=== PATIENT | female | born 1980 | race Caucasian/White ===

== ENCOUNTER 2016-11-23 03:11 | Emergency (ER) | payer OTHER, MEDICAID ==
[~2016-11-23] VITALS: Ht 170.2 cm; Wt 70.3 kg
[2016-11-23 03:16] VITALS: BP_SYST 142
[2016-11-23] MEDS ORDERED: MORPHINE 4 MG/ML INJ. SYRINGE IVP ONE ×2 (03:45→05:15)
[2016-11-23] MEDS ORDERED: ONDANSETRON HCL 4 MG/2 ML VIAL IVP ONE (03:45)
[2016-11-23 03:59] LABS: BASOPHILS % (AUTO) 0.3 % (0.0-2.0); EOSINOPHILS # (AUTO) 0.2 K/uL (0.0-0.4); EOSINOPHILS % (AUTO) 3.6 % (0.0-4.0); HEMATOCRIT 37.3 % (36-48); HEMOGLOBIN 13.1 g/dL (12.0-16.0); LYMPHOCYTES # (AUTO) 3.4 K/uL (1.0-5.5); LYMPHOCYTES % (AUTO) 50.9 % (20.5-51.5); MEAN CORPUSCULAR HEMOGLOBIN 33 pg (27-31); MEAN CORPUSCULAR HGB CONC 35 % (32-36); MEAN CORPUSCULAR VOLUME 95 fL (79.0-98.0); MONOCYTES # (AUTO) 0.5 K/uL (0.0-1.0); MONOCYTES % (AUTO) 8.4 % (1.7-9.3); NEUTROPHILS # (AUTO) 2.3 K/uL (1.8-7.7); NEUTROPHILS % (AUTO) 36.8 % (40.0-70.0); PLATELET COUNT (AUTO) 311 K/uL (130-430); RED BLOOD CELL COUNT(AUTO) 3.95 MIL/uL (4.2-6.2); RED CELL DISTRIBUTION WIDTH 11.7 % (9.0-15.0); WHITE BLOOD COUNT (AUTO) 6.4 K/uL (4.8-10.8)
[2016-11-23 04:12] LABS: CALCIUM 8.2 mg/dL (8.4-11.0); CHLORIDE 107 mmol/L (98-107); CREATININE 0.95 mg/dL (0.55-1.30); GLUCOSE 106 mg/dL (70-99); POTASSIUM 3.9 mmol/L (3.5-5.1); SODIUM SERUM 135 mmol/L (136-145); UREA NITROGEN, BLOOD 13 mg/dL (8-21)
[2016-11-23 04:16] LABS: ANION GAP < 3 (5-15); GFR AFRICAN AMERICAN 87 mL/min (>90)
[2016-11-23 04:22] LABS: ALANINE AMINOTRANSFERASE 33 U/L (12-78); ALBUMIN 3.5 g/dL (3.4-4.8); ASPARTATE AMINOTRANSFERASE 19 U/L (10-37); HCG,QUANTITATIVE 0 mIU/ML (0-6); TOTAL BILIRUBIN 0.1 mg/dL (0.0-1.0); TOTAL PROTEIN, SERUM 6.4 g/dL (6.4-8.3)
[2016-11-23 05:53] VITALS: BP_SYST 122
== END 2016-11-23 05:53 | disposition home or self-care (01) ==
LOC: SED 03:11
DX: D25.9 Leiomyoma of uterus, unspecified (principal); N93.8 Other specified abnormal uterine and vaginal bleeding; F41.9 Anxiety disorder, unspecified; F42.9 Obsessive-compulsive disorder, unspecified; Z88.0 Allergy status to penicillin
CPT/HCPCS: 36415; 76856; 80053; 81025; 84702; 85025; 86900; 86901; 87070; 87210; 96374; 96375; 96376; 99285; J2270; J2405

== ENCOUNTER 2017-02-06 22:16 | Emergency (ER) | payer OTHER, MEDICAID ==
[~2017-02-06] VITALS: Ht 167.6 cm; Wt 74.8 kg
[2017-02-06 22:16] VITALS: BP_SYST 131
[2017-02-06] MEDS ORDERED: NACL 0.9% 1,000 ML IV ONE (22:45)
[2017-02-06 22:58] LABS: BASOPHILS # (AUTO) 0.1 K/uL (0.0-0.2); BASOPHILS % (AUTO) 0.8 % (0.0-2.0); EOSINOPHILS # (AUTO) 0.2 K/uL (0.0-0.4); EOSINOPHILS % (AUTO) 2.3 % (0.0-4.0); HEMATOCRIT 41.3 % (36-48); HEMOGLOBIN 14.1 g/dL (12.0-16.0); LYMPHOCYTES # (AUTO) 2.9 K/uL (1.0-5.5); LYMPHOCYTES % (AUTO) 32.4 % (20.5-51.5); MEAN CORPUSCULAR HEMOGLOBIN 32 pg (27-31); MEAN CORPUSCULAR HGB CONC 34 % (32-36); MEAN CORPUSCULAR VOLUME 94 fL (79.0-98.0); MONOCYTES # (AUTO) 0.5 K/uL (0.0-1.0); MONOCYTES % (AUTO) 6.1 % (1.7-9.3); NEUTROPHILS # (AUTO) 5.2 K/uL (1.8-7.7); NEUTROPHILS % (AUTO) 58.4 % (40.0-70.0); PLATELET COUNT (AUTO) 289 K/uL (130-430); RED BLOOD CELL COUNT(AUTO) 4.41 MIL/uL (4.2-6.2); RED CELL DISTRIBUTION WIDTH 11.8 % (9.0-15.0); WHITE BLOOD COUNT (AUTO) 8.9 K/uL (4.8-10.8)
[2017-02-06] MEDS ORDERED: KETOROLAC TROMETHAMINE 30 MG VIAL IVP ONE (23:00)
[2017-02-06] MEDS ORDERED: LORazepam 2 MG/ML VIAL (FOR ER USE) IVP ONE (23:00)
[2017-02-06 23:03] LABS: CALCIUM 8.6 mg/dL (8.4-11.0); CREATININE 0.73 mg/dL (0.55-1.30); POTASSIUM 3.7 mmol/L (3.5-5.1)
[2017-02-06 23:07] LABS: INR 0.9 (0.8-1.2); PROTHROMBIN TIME 9.9 SECS (9.5-12.5)
[2017-02-06 23:09] LABS: TOTAL BILIRUBIN 0.1 mg/dL (0.0-1.0); TOTAL PROTEIN, SERUM 7.6 g/dL (6.4-8.3)
[2017-02-06 23:15] LABS: BILIRUBIN,URINE NEGATIVE (NEGATIVE); BLOOD, URINE NEGATIVE (NEGATIVE); CLARITY/URINE CLEAR (CLEAR); COLOR,URINE YELLOW (YELLOW); GLUCOSE,URINE NEGATIVE (NEGATIVE); KETONES,URINE NEGATIVE (NEGATIVE); LEUKOCYTE ESTERASE ,URINE NEGATIVE (NEGATIVE); NITRITE, URINE NEGATIVE (NEGATIVE); PH,URINE 5.5 (5.0-8.0); PROTEIN URINE NEGATIVE (NEGATIVE); UROBILINOGEN,URINE 0.2 (0.2-1.0)
[2017-02-06] MEDS ORDERED: MORPHINE 2 MG/ML INJ. SYRINGE IVP ONE (23:30)
[2017-02-07 00:05] VITALS: BP_SYST 123
== END 2017-02-07 00:05 | disposition home or self-care (01) ==
LOC: SED 22:16
DX: S90.112A Contusion of left great toe without damage to nail, initial encounter (principal); F41.9 Anxiety disorder, unspecified; Z88.0 Allergy status to penicillin; F32.9 Major depressive disorder, single episode, unspecified; Z90.49 Acquired absence of other specified parts of digestive tract; W22.8XXA Striking against or struck by other objects, initial encounter; Y93.89 Activity, other specified; Y92.89 Other specified places as the place of occurrence of the external cause; Y99.8 Other external cause status
CPT/HCPCS: 36415; 73660; 80053; 81003; 81025; 84550; 85025; 85610; 85730; 93005; 96361; 96374; 96375; 99285; J1885; J2060; J2270; J7030

== ENCOUNTER 2017-05-05 19:26 | Emergency (ER) | payer OTHER, MEDICAID ==
[~2017-05-05] VITALS: Ht 170.2 cm; Wt 77.1 kg
[2017-05-05 19:40] VITALS: BP_SYST 144
[2017-05-05 20:18] LABS: BILIRUBIN,URINE NEGATIVE (NEGATIVE); BLOOD, URINE NEGATIVE (NEGATIVE); CLARITY/URINE CLEAR (CLEAR); COLOR,URINE YELLOW (YELLOW); GLUCOSE,URINE NEGATIVE (NEGATIVE); KETONES,URINE NEGATIVE (NEGATIVE); LEUKOCYTE ESTERASE ,URINE NEGATIVE (NEGATIVE); NITRITE, URINE NEGATIVE (NEGATIVE); PH,URINE 6.5 (5.0-8.0); PROTEIN URINE NEGATIVE (NEGATIVE); UROBILINOGEN,URINE 0.2 (0.2-1.0)
[2017-05-05] MEDS: HYDROcodone/ACETAMIN 5-325 MG TAB (NORCO/ VICODIN) PO ONE (21:50)
[2017-05-05 22:35] VITALS: BP_SYST 126
== END 2017-05-05 22:35 | disposition home or self-care (01) ==
LOC: SED 19:26
DX: O26.892 Other specified pregnancy related conditions, second trimester (principal); R10.32 Left lower quadrant pain; F41.9 Anxiety disorder, unspecified; F32.9 Major depressive disorder, single episode, unspecified; Z3A.15 15 weeks gestation of pregnancy; Z90.49 Acquired absence of other specified parts of digestive tract; Z88.0 Allergy status to penicillin
CPT/HCPCS: 76805-TC; 81003; 81025; 99285

== ENCOUNTER 2017-07-04 10:00 | Observation (INO) | payer OTHER, MEDICAID ==
[~2017-07-04] VITALS: Ht 170.2 cm; Wt 79.8 kg
[2017-07-04] MEDS ORDERED: LR 1,000 ML IV ONE (10:30)
[2017-07-04] MEDS ORDERED: ONDANSETRON HCL 4 MG/2 ML VIAL IVP PRN (10:30)
[2017-07-04] MEDS ORDERED: ONDANSETRON HCL 4 MG/2 ML VIAL ONE (10:48)
== END 2017-07-04 13:17 | disposition home or self-care (01) ==
LOC: SPU 10:00
PROVIDERS: ADMIT Obstetrics & Gynecology; ATTEND Obstetrics & Gynecology
DX: O21.2 Late vomiting of pregnancy (principal); O26.892 Other specified pregnancy related conditions, second trimester; R19.7 Diarrhea, unspecified; Z3A.24 24 weeks gestation of pregnancy
CPT/HCPCS: 81002; 96374; G0378; J2405

== ENCOUNTER 2017-09-17 22:55 | Observation (INO) | payer OTHER, MEDICAID ==
[~2017-09-17] VITALS: Ht 170.2 cm; Wt 81.6 kg
[2017-09-18] MEDS ORDERED: NALBUPHINE HCL 10 MG/ML AMP IM PRN
[2017-09-18] MEDS ORDERED: NALBUPHINE HCL 10 MG/ML AMP IVP PRN
[2017-09-18] MEDS: LR 1,000 ML IV SCH ×3 (00:50→02:18)
[2017-09-18] MEDS ORDERED: TERBUTALINE SULFATE 1 MG/ML VIAL SUBCUT ONE ×2 (01:00→02:18)
== END 2017-09-18 07:20 | disposition home or self-care (01) ==
LOC: SPU 22:55
PROVIDERS: ADMIT Obstetrics & Gynecology; ATTEND Obstetrics & Gynecology
DX: O26.893 Other specified pregnancy related conditions, third trimester (principal); R10.9 Unspecified abdominal pain; Z3A.35 35 weeks gestation of pregnancy
CPT/HCPCS: 81002; 96360; 96361; 96372; G0378 ×2; J3105; J7120; 59899

== ENCOUNTER 2017-10-02 21:24 | Observation (INO) | payer OTHER, MEDICAID | END 2017-10-02 23:50 | disposition home or self-care (01) | LOC: SPU 21:24 | PROVIDERS: ADMIT Specialist; ATTEND Specialist | DX: O26.893 Other specified pregnancy related conditions, third trimester (principal); R10.2 Pelvic and perineal pain; Z3A.37 37 weeks gestation of pregnancy | CPT/HCPCS: 81002-TC; G0378 ==

== ENCOUNTER 2017-10-07 02:43 | Observation (INO) | payer OTHER, MEDICAID | END 2017-10-07 03:50 | disposition home or self-care (01) | LOC: SPU 02:43 | PROVIDERS: ADMIT Obstetrics & Gynecology; ATTEND Obstetrics & Gynecology | DX: O36.8130 Decreased fetal movements, third trimester, not applicable or unspecified (principal); Z3A.37 37 weeks gestation of pregnancy | CPT/HCPCS: 59025; 81002-TC; G0378 ==

== ENCOUNTER 2018-03-08 09:21 | Emergency (ER) | payer MEDICAID, OTHER ==
[~2018-03-08] VITALS: Ht 170.2 cm; Wt 71.2 kg
[2018-03-08 09:30] VITALS: BP_SYST 120
[2018-03-08] MEDS ORDERED: PROCHLORPERAZINE EDISYLATE 10 MG/2 ML VIAL IM ONE (10:15)
[2018-03-08] MEDS ORDERED: fentaNYL CITRATE/PF 100 MCG/2 ML AMP EP ONE (10:15)
[2018-03-08 11:37] VITALS: BP_SYST 120
== END 2018-03-08 11:37 | disposition home or self-care (01) ==
LOC: SED 09:21
DX: M54.5 Low back pain (principal); G89.29 Other chronic pain; M25.562 Pain in left knee; M25.561 Pain in right knee; F41.9 Anxiety disorder, unspecified; M10.9 Gout, unspecified; Z88.0 Allergy status to penicillin
CPT/HCPCS: 72100; 96372; 99284; J0780; J3010

== ENCOUNTER 2018-06-28 19:57 | Emergency (ER) | payer MEDICAID ==
[~2018-06-28] VITALS: Ht 170.2 cm; Wt 65.8 kg
--- NOTE | 2018-06-28 20:20 | NUR ---
Patient to ER bed 3 to gown for evaluation. Side rails up. Report given from ALBERT Yao.
--- NOTE | 2018-06-28 20:25 | NUR ---
Mylene Astudillo TNT POWDER WORKER at bedside to evaluate patient.
[2018-06-28 20:34] VITALS: BP_SYST 135
--- NOTE | 2018-06-28 20:40 | NUR ---
Pt came in for lower back pain that started 2 weeks ago associated with nausea, vomiting, and fever. Pt says that she has been taking azithromycin prescribed by her doctor. No SOB, chest pain, vaginal bleeding, dizziness. No other complaints/injuries noted. Will cont. to monitor.
--- NOTE | 2018-06-28 20:43 | NUR ---
Pt medicated with diflucan PO per AUTO CUSTOMIZE PAINTER order. Tolerated well. Will cont. to monitor.
[2018-06-28] MEDS ORDERED: FLUCONAZOLE 100 MG TABLET (DIFLUCAN) PO ONE (20:45)
[2018-06-28 21:15] VITALS: BP_SYST 135
--- NOTE | 2018-06-28 21:15 | NUR ---
Patient given written and verbal discharge instructions and verbalizes understanding. ER STRATEGIC ALLIANCES MANAGER Mylene Astudillo discussed with patient the results and treatment provided. Patient in stable condition. ID arm band removed. Rx of pyridium and doxycycline given. Patient educated on pain management and to follow up with PMD within 2-3 days. Pain Scale 7/10, however, pt states that she has percocet at home. Opportunity for questions provided and answered. Medication side effect fact sheet provided.
== END 2018-06-28 21:15 | disposition home or self-care (01) ==
LOC: SED 19:57
DX: N76.0 Acute vaginitis (principal); R03.0 Elevated blood-pressure reading, without diagnosis of hypertension; F41.9 Anxiety disorder, unspecified; F32.9 Major depressive disorder, single episode, unspecified; M10.9 Gout, unspecified; Z88.0 Allergy status to penicillin
CPT/HCPCS: 81025; 99283

== ENCOUNTER 2018-09-01 17:03 | Emergency (ER) | payer MEDICAID ==
[~2018-09-01] VITALS: Ht 170.2 cm; Wt 63.5 kg
[2018-09-01 17:16] VITALS: BP_SYST 145
[2018-09-01] MEDS ORDERED: IBUPROFEN 800 MG TABLET PO ONE (17:45)
[2018-09-01] MEDS ORDERED: LIDOCAINE 1% 10 MG/ML, 20 ML MDV INJ ONE (18:15)
[2018-09-01] MEDS ORDERED: MORPHINE 4 MG/ML INJ. SYRINGE IM ONE (18:45)
[2018-09-01 19:22] VITALS: BP_SYST 128
== END 2018-09-01 19:22 | disposition home or self-care (01) ==
LOC: SED 17:03
DX: M25.462 Effusion, left knee (principal); R03.0 Elevated blood-pressure reading, without diagnosis of hypertension; F41.9 Anxiety disorder, unspecified; F32.9 Major depressive disorder, single episode, unspecified; Z88.0 Allergy status to penicillin; Z90.49 Acquired absence of other specified parts of digestive tract
CPT/HCPCS: 20610; 36415; 73564; 84550; 96372; 99284; J2001; J2270

== ENCOUNTER 2018-09-03 09:25 | Emergency (ER) | payer MEDICAID ==
[~2018-09-03] VITALS: Ht 170.2 cm; Wt 65.8 kg
[2018-09-03 09:34] VITALS: BP_SYST 123
[2018-09-03] MEDS ORDERED: NACL 0.9% 1,000 ML IV ONE ×2 (09:47→11:45)
[2018-09-03] MEDS ORDERED: ONDANSETRON HCL 4 MG/2 ML VIAL IVP ONE ×2 (10:00→11:45)
[2018-09-03] MEDS ORDERED: MORPHINE 4 MG/ML INJ. SYRINGE IVP ONE (10:15)
[2018-09-03 10:36] LABS: BASOPHILS % (AUTO) 0.4 % (0.0-2.0); EOSINOPHILS # (AUTO) 0.1 K/uL (0.0-0.4); EOSINOPHILS % (AUTO) 1.4 % (0.0-4.0); HEMATOCRIT 43.5 % (36-48); HEMOGLOBIN 14.7 g/dL (12.0-16.0); LYMPHOCYTES # (AUTO) 0.9 K/uL (1.0-5.5); LYMPHOCYTES % (AUTO) 18.5 % (20.5-51.5); MEAN CORPUSCULAR HEMOGLOBIN 33 pg (27-31); MEAN CORPUSCULAR HGB CONC 34 % (32-36); MEAN CORPUSCULAR VOLUME 96 fL (79.0-98.0); MONOCYTES # (AUTO) 0.2 K/uL (0.0-1.0); MONOCYTES % (AUTO) 4.1 % (1.7-9.3); NEUTROPHILS # (AUTO) 3.9 K/uL (1.8-7.7); NEUTROPHILS % (AUTO) 75.6 % (40.0-70.0); PLATELET COUNT (AUTO) 339 K/uL (130-430); RED BLOOD CELL COUNT(AUTO) 4.53 MIL/uL (4.2-6.2); RED CELL DISTRIBUTION WIDTH 11.9 % (9.0-15.0); WHITE BLOOD COUNT (AUTO) 5.1 K/uL (4.8-10.8)
[2018-09-03 10:41] LABS: CALCIUM 9.1 mg/dL (8.4-11.0); CREATININE 0.72 mg/dL (0.55-1.30); POTASSIUM 3.9 mmol/L (3.5-5.1)
[2018-09-03 10:44] LABS: INR 0.9 (0.8-1.2); PROTHROMBIN TIME 9.3 SECS (9.5-12.5)
[2018-09-03 10:45] LABS: ALBUMIN 4.2 g/dL (3.4-4.8); TOTAL BILIRUBIN 0.4 mg/dL (0.0-1.0); URIC ACID 2.7 mg/dL (2.4-7.0)
[2018-09-03 13:10] VITALS: BP_SYST 120
== END 2018-09-03 13:10 | disposition home or self-care (01) ==
LOC: SED 09:25
DX: K52.9 Noninfective gastroenteritis and colitis, unspecified (principal); M25.462 Effusion, left knee; G89.29 Other chronic pain; M54.5 Low back pain; R03.0 Elevated blood-pressure reading, without diagnosis of hypertension; F41.9 Anxiety disorder, unspecified; F32.9 Major depressive disorder, single episode, unspecified; Z90.49 Acquired absence of other specified parts of digestive tract; Z88.0 Allergy status to penicillin
CPT/HCPCS: 36415; 71045; 80053; 82150; 83605; 83690; 84550; 85025; 85610; 85730; 87040; 96361; 96374; 96375; 96376; 99284; J2270; J2405; J7030

== ENCOUNTER 2018-09-28 09:53 | Emergency (ER) | payer MEDICAID ==
[~2018-09-28] VITALS: Ht 170.2 cm; Wt 65.8 kg
[2018-09-28 10:00] VITALS: BP_SYST 123
--- NOTE | 2018-09-28 10:00 | NUR ---
Patient triaged and placed in waiting room. VSS and patient appears in no acute distress at this time. Accompanied by MOTHER, awaiting available bed, and MD notified of need for MSE.
--- NOTE | 2018-09-28 10:12 | NUR ---
AFTER BEING TRIAGED PT STATES THAT SHE DOES NOT WANT TO WAIT AND WANTS TO BE SEEN IMMEDIATELY. EXPLAINED TO PT THAT THERE MAY BE A SHORT WAIT DUE TO ALL THE BEDS BEING FULL. VSS PT STATES SHE WILL GO TO ANOTHER HOSPITAL WHERE SHE WON'T WAIT. PT LEFT WITHOUT BEING SEEN BY
== END 2018-09-28 10:12 | disposition left against medical advice (07) ==
LOC: SED 09:53
DX: M25.562 Pain in left knee (principal); M54.5 Low back pain; R19.7 Diarrhea, unspecified; F41.9 Anxiety disorder, unspecified; F32.9 Major depressive disorder, single episode, unspecified; M10.9 Gout, unspecified; Z88.0 Allergy status to penicillin; Z53.21 Procedure and treatment not carried out due to patient leaving prior to being seen by health care provider

== ENCOUNTER 2018-10-27 10:42 | Emergency (ER) | payer MEDICAID ==
[~2018-10-27] VITALS: Ht 170.2 cm; Wt 67.1 kg
[2018-10-27 10:46] VITALS: BP_SYST 137
--- NOTE | 2018-10-27 11:17 | NUR ---
Patient to ER bed 03 for evaluation. Side rails up. Report given to EDIN PRICE.
--- NOTE | 2018-10-27 11:49 | NUR ---
KALPESH Ace at bedside examining patient.
--- NOTE | 2018-10-27 12:05 | NUR ---
Per MD Chin, Clonidine patch to be administered s/p given 500mL NS.
[2018-10-27] MEDS: NACL 0.9% 1,000 ML IV ONE (12:10)
[2018-10-27 12:11] LABS: BASOPHILS % (AUTO) 0.4 % (0.0-2.0); EOSINOPHILS % (AUTO) 0.5 % (0.0-4.0); HEMATOCRIT 44.7 % (36-48); HEMOGLOBIN 15.2 g/dL (12.0-16.0); LYMPHOCYTES # (AUTO) 1.9 K/uL (1.0-5.5); LYMPHOCYTES % (AUTO) 23.4 % (20.5-51.5); MEAN CORPUSCULAR HEMOGLOBIN 33 pg (27-31); MEAN CORPUSCULAR HGB CONC 34 % (32-36); MEAN CORPUSCULAR VOLUME 96 fL (79.0-98.0); MONOCYTES # (AUTO) 0.4 K/uL (0.0-1.0); MONOCYTES % (AUTO) 4.9 % (1.7-9.3); NEUTROPHILS # (AUTO) 5.8 K/uL (1.8-7.7); NEUTROPHILS % (AUTO) 70.8 % (40.0-70.0); PLATELET COUNT (AUTO) 359 K/uL (130-430); RED BLOOD CELL COUNT(AUTO) 4.67 MIL/uL (4.2-6.2); RED CELL DISTRIBUTION WIDTH 12.2 % (9.0-15.0); WHITE BLOOD COUNT (AUTO) 8.2 K/uL (4.8-10.8)
[2018-10-27 12:22] LABS: CALCIUM 9.1 mg/dL (8.4-11.0); CREATININE 0.69 mg/dL (0.55-1.30); POTASSIUM 3.4 mmol/L (3.5-5.1)
[2018-10-27] MEDS: DIPHENHYDRAMINE INJ 50 MG/ML VIAL IVP ONE (12:23)
[2018-10-27] MEDS: cloNIDine HCL 0.1 MG/24 HR PATCH.TDWK TD ONE (12:45)
[2018-10-27] MEDS ORDERED: NORMAL SALINE 5 ML DISP.SYRIN IVF SCH (14:00)
--- NOTE | 2018-10-27 14:13 | NUR ---
Patient given written and verbal discharge instructions and verbalizes understanding. ER MD MCDANIELS discussed with patient the results and treatment provided. Patient in stable condition. ID arm band removed. IV catheter removed intact and dressing applied, no active bleeding. Rx of given. Patient educated on pain management and to follow up with PMD. Pain Scale 3. Opportunity for questions provided and answered. Medication side effect fact sheet provided.
== END 2018-10-27 14:13 | disposition home or self-care (01) ==
LOC: SED 10:42
DX: G89.29 Other chronic pain (principal); F11.20 Opioid dependence, uncomplicated; F41.9 Anxiety disorder, unspecified; F32.9 Major depressive disorder, single episode, unspecified; Z88.0 Allergy status to penicillin
CPT/HCPCS: 36415; 80048; 85025; 96361; 96374; 99283; J1200; J7030

== ENCOUNTER 2019-03-05 10:25 | Emergency (ER) | payer MEDICAID ==
[~2019-03-05] VITALS: Ht 170.2 cm; Wt 80.3 kg
[2019-03-05 10:33] VITALS: BP_SYST 126
--- NOTE | 2019-03-05 10:39 | NUR ---
Patient to ER bed 7 to gown for evaluation. Side rails up.
--- NOTE | 2019-03-05 10:45 | NUR ---
Patient arrived via POV, AAOx4, and ambulatory. Patient states on Wednesday she saw her child attempt to take 5 unknown pills, possibly norvasc, and she took them herself. Since, she has been having nausea, vomiting, and diarrhea. Patient not hypotensive at this time. Patient expresses no desire to harm self. Patient denies chest pain, shortness of breath. Will continue to follow up and monitor.
--- NOTE | 2019-03-05 10:50 | NUR ---
ER at bedside examining patient.
[2019-03-05 11:17] LABS: BASOPHILS % (AUTO) 0.5 % (0.0-2.0); EOSINOPHILS % (AUTO) 0.3 % (0.0-4.0); HEMATOCRIT 39.9 % (36-48); HEMOGLOBIN 14.1 g/dL (12.0-16.0); LYMPHOCYTES # (AUTO) 1.3 K/uL (1.0-5.5); LYMPHOCYTES % (AUTO) 20.6 % (20.5-51.5); MEAN CORPUSCULAR HEMOGLOBIN 34 pg (27-31); MEAN CORPUSCULAR HGB CONC 35 % (32-36); MEAN CORPUSCULAR VOLUME 95 fL (79.0-98.0); MONOCYTES # (AUTO) 0.4 K/uL (0.0-1.0); MONOCYTES % (AUTO) 5.9 % (1.7-9.3); NEUTROPHILS # (AUTO) 4.7 K/uL (1.8-7.7); NEUTROPHILS % (AUTO) 72.7 % (40.0-70.0); PLATELET COUNT (AUTO) 322 K/uL (130-430); RED CELL DISTRIBUTION WIDTH 12.5 % (9.0-15.0); WHITE BLOOD COUNT (AUTO) 6.4 K/uL (4.8-10.8)
[2019-03-05 11:28] LABS: CREATININE 0.76 mg/dL (0.55-1.30); POTASSIUM 3.2 mmol/L (3.5-5.1)
[2019-03-05 11:32] LABS: TOTAL BILIRUBIN 0.6 mg/dL (0.0-1.0)
[2019-03-05] MEDS: ONDANSETRON HCL 4 MG/2 ML VIAL IVP ONE (11:40)
[2019-03-05] MEDS: MORPHINE 4 MG/ML INJ. SYRINGE IVP ONE (11:41)
[2019-03-05] MEDS: NACL 0.9% 1,000 ML IV ONE (11:42)
[2019-03-05 12:14] LABS: BILIRUBIN,URINE NEGATIVE (NEGATIVE); BLOOD, URINE NEGATIVE (NEGATIVE); CLARITY/URINE CLEAR (CLEAR); COLOR,URINE YELLOW (YELLOW); GLUCOSE,URINE 1+ (NEGATIVE); KETONES,URINE NEGATIVE (NEGATIVE); LEUKOCYTE ESTERASE ,URINE NEGATIVE (NEGATIVE); NITRITE, URINE NEGATIVE (NEGATIVE); PROTEIN URINE TRACE (NEGATIVE); UROBILINOGEN,URINE 0.2 (0.2-1.0)
[2019-03-05 12:23] LABS: BARBITURATE, URINE NEGATIVE (NEG <=200); BENZODIAZEPINE, URINE POSITIVE (NEG <=150); CANNABINOID, URINE POSITIVE (NEG <=50); COCAINE, URINE NEGATIVE (NEG <=150); METHAMPHETAMINES SCREEN,URINE NEGATIVE (NEG <=500); OPIATE, URINE POSITIVE (NEG <=100); PHENCYCLIDINE SCREEN,URINE NEGATIVE (NEG <=25); UR TRICYCLIC ANTIDEPRESSANTS NEGATIVE (NEG <=300); URINE AMPHETAMINE NEGATIVE (NEG <=500); URINE METHADONE NEGATIVE (NEG <=200); URINE OXYCODONE SCREEN NEGATIVE (NEG <=100); URINE PROPOXYPHENE SCREEN NEGATIVE (NEG <=300)
--- NOTE | 2019-03-05 13:22 | NUR ---
Patient complaint of 'racing heart' after ambulating to restroom. Patient placed on monitor, heart rate 78, and oxygen saturation of 99%.
[2019-03-05] MEDS: NS 1000 ML IV.SOLN IV ONE (13:24)
[2019-03-05 13:46] VITALS: BP_SYST 127
--- NOTE | 2019-03-05 13:52 | NUR ---
Patient given written and verbal discharge instructions and verbalizes understanding. ER MD discussed with patient the results and treatment provided. Patient in stable condition. ID arm band removed. IV catheter removed intact and dressing applied, no active bleeding. Rx of Zofran and Lomotil given. Patient educated on pain management and to follow up with PMD. Pain Scale 3/10 abdomen. Opportunity for questions provided and answered. Medication side effect fact sheet provided.
== END 2019-03-05 13:52 | disposition home or self-care (01) ==
LOC: SED 10:25
DX: K52.9 Noninfective gastroenteritis and colitis, unspecified (principal); F11.10 Opioid abuse, uncomplicated; F13.10 Sedative, hypnotic or anxiolytic abuse, uncomplicated; F12.10 Cannabis abuse, uncomplicated
CPT/HCPCS: 36415; 71045; 80053; 80307; 81003; 82150; 83605; 83690; 85025; 85610; 85730; 87040; 89055; 96374; 96375; 99284; J2270; J2405; J7030

== ENCOUNTER 2019-06-04 19:17 | Emergency (ER) | payer MEDICAID ==
[~2019-06-04] VITALS: Ht 170.2 cm; Wt 77.1 kg
[2019-06-04 19:20] VITALS: BP_SYST 133
== END 2019-06-04 22:35 | disposition left against medical advice (07) ==
LOC: SED 19:17
DX: L08.89 Other specified local infections of the skin and subcutaneous tissue (principal); Z53.21 Procedure and treatment not carried out due to patient leaving prior to being seen by health care provider

== ENCOUNTER → 2019-09-07 | Emergency (ER) | payer MEDICAID ==
[~2019-09-07] VITALS: Ht 170.2 cm; Wt 82.6 kg
[~2019-09-07] MED LIST: LIDOCAINE 1% 10 MG/ML, 20 ML MDV INJ ONE; MORPHINE 4 MG/ML INJ. SYRINGE IVP ONE; MORPHINE 4 MG/ML INJ. SYRINGE ONE; ONDANSETRON HCL 4 MG/2 ML VIAL IVP ONE; ONDANSETRON HCL 4 MG/2 ML VIAL ONE; methylPREDNISolone SOD SUCC/PF 62.5 MG/ML VIAL IVP ONE
[2019-09-07 16:50] VITALS: BP_SYST 128
--- NOTE | 2019-09-07 17:52 | NUR ---
PLPatient to ER bed 02 for evaluation. Side rails up.
--- NOTE | 2019-09-07 17:55 | NUR ---
Patient presents to ER C/O Bilat knee pain . Patient A&Ox4, ambulatory to ER, skin pink and warm,bilat knee swelling, pain 10/10, denies N/V/D. Patient states pain X1 month secondary to gout, last drained in May 2019. Patient states she was seen at [facility] ER today and treated with toradol IM.
--- NOTE | 2019-09-07 18:25 | NUR ---
ER Dr. Lamas at bedside examining patient.
--- NOTE | 2019-09-07 18:50 | NUR ---
Dr. Lamas at BS for bilat knee Arthrocentesis
--- NOTE | 2019-09-07 19:20 | NUR ---
Report given to Griffin PRICE
[2019-09-07 20:14] VITALS: BP_SYST 116
--- NOTE | 2019-09-07 20:14 | NUR ---
Patient given written and verbal discharge instructions and verbalizes understanding. ER MD discussed with patient the results and treatment provided. Patient in stable condition. ID arm band removed. IV catheter removed intact and dressing applied, no active bleeding. Rx of naproxen, colchine, allopurinol, walker given. Patient educated on pain management and to follow up with PMD. Pain Scale 0/10. Opportunity for questions provided and answered. Medication side effect fact sheet provided.
== END | disposition still patient (30) ==
LOC: SED 16:36
DX: M10.9 Gout, unspecified (principal); M25.462 Effusion, left knee; M25.461 Effusion, right knee; K21.9 Gastro-esophageal reflux disease without esophagitis; F41.9 Anxiety disorder, unspecified; I10 Essential (primary) hypertension; Z90.49 Acquired absence of other specified parts of digestive tract; Z88.0 Allergy status to penicillin
CPT/HCPCS: 20611; 81025; 96374; 96375; 96376; 99284; J2001; J2270; J2405; J2930

== ENCOUNTER 2019-09-13 07:46 | Emergency (ER) | payer MEDICAID ==
[~2019-09-13] VITALS: Ht 170.2 cm; Wt 82.6 kg
[2019-09-13 07:46] VITALS: BP_SYST 107
--- NOTE | 2019-09-13 07:46 | NUR ---
Patient triaged and placed in waiting room. VSS and patient appears in no acute distress at this time. Accompanied by SELF, awaiting available bed, and MD notified of need for MSE.
--- NOTE | 2019-09-13 09:10 | NUR ---
Patient presentes to ER C/O abdominal pain. Patient A&Ox4, ambulatory to ER, afebrile, skin pink and warm, pain 10/10, Nausea, emesis, diarrhea. Patient states adominal pain, N/V/D x3days, patient state chilredn have had "stomach flu" this week. PT was seen in [facility] ER last week for bilat knee gout.
--- NOTE | 2019-09-13 09:13 | NUR ---
DR HUI AT BEDSIDE FOR EVALUATION
[2019-09-13] MEDS ORDERED: DIPHENOXYLATE HCL/ATROP SULF 2.5 MG TAB PO ONE (09:15)
[2019-09-13] MEDS ORDERED: ONDANSETRON 4 MG ODT TAB PO ONE (09:15)
[2019-09-13] MEDS ORDERED: MAG HYDROX/AL HYDROX/SIMETH 30 ML, DICYCLOMINE HCL 20 MG, LIDOCAINE VISCOUS 2% 15ML (PO... PO ONE ×3 (11:00)
[2019-09-13] MEDS ORDERED: MORPHINE 4 MG/ML INJ. SYRINGE IM ONE (11:00)
[2019-09-13 11:55] VITALS: BP_SYST 116
--- NOTE | 2019-09-13 11:55 | NUR ---
Patient given written and verbal discharge instructions and verbalizes understanding. ER MD discussed with patient the results and treatment provided. Patient in stable condition. ID arm band removed. Rx of PROTONIX & GAS RELIEF given. Patient educated on pain management and to follow up with PMD. Pain Scale 2/10 TOLERABLE FOR PATIENT. Opportunity for questions provided and answered. Medication side effect fact sheet provided.
== END 2019-09-13 11:55 | disposition home or self-care (01) ==
LOC: SED 07:46
DX: R10.9 Unspecified abdominal pain (principal); R11.2 Nausea with vomiting, unspecified; K21.9 Gastro-esophageal reflux disease without esophagitis; F32.9 Major depressive disorder, single episode, unspecified; Z88.0 Allergy status to penicillin
CPT/HCPCS: 74018; 96372; 99284; J2001; J2270; Q0162

== ENCOUNTER 2019-10-12 13:20 | Emergency (ER) | payer MEDICAID ==
[~2019-10-12] VITALS: Ht 170.2 cm; Wt 81.6 kg
[2019-10-12 13:25] VITALS: BP_SYST 148
[2019-10-12 16:39] VITALS: BP_SYST 128
== END 2019-10-12 16:15 | disposition home or self-care (01) ==
LOC: SED 13:20
DX: G56.02 Carpal tunnel syndrome, left upper limb (principal); F41.9 Anxiety disorder, unspecified; K21.9 Gastro-esophageal reflux disease without esophagitis; Z88.0 Allergy status to penicillin; Z90.49 Acquired absence of other specified parts of digestive tract
CPT/HCPCS: 99281

== ENCOUNTER 2019-10-24 22:11 | Emergency (ER) | payer MEDICAID ==
[~2019-10-24] VITALS: Ht 167.6 cm; Wt 77.1 kg
[2019-10-24 22:16] VITALS: BP_SYST 153
--- NOTE | 2019-10-24 22:20 | NUR ---
Patient to ER bed 06 to gown for evaluation. Side rails up.
--- NOTE | 2019-10-24 22:22 | NUR ---
Shadi herrera in [facility] - 10/24/19 at 2223 by [email or web address] Patient to [facility] to [facility] for evaluation. Side rails up.
--- NOTE | 2019-10-24 22:46 | NUR ---
Patient complains of throwing up, having diarrhea, and epigastric abdominal pain for the past two days. Patient also states she has had the chills and sweats for the past two days. Patient rates her pain a 10 out of 10. Patient denies shortness of breath, cough and fever. Patient states she saw blood in her throw up around 3pm today. Patient states she felt weak yesterday about 5pm and passed out and states she did hit her head. patient has pain on the left side of head in the front and complains of a headache. Patient has a hx of gout, RA, gallbladder removal, bilateral knee surgeries, anxiety, depression, and insomnia.
[2019-10-24] MEDS ORDERED: NACL 0.9% 1,000 ML IV ONE (23:08)
--- NOTE | 2019-10-24 23:10 | NUR ---
ER Dr. Cortes at bedside examining patient.
[2019-10-24] MEDS ORDERED: ONDANSETRON HCL 4 MG/2 ML VIAL IVP ONE (23:15)
--- NOTE | 2019-10-24 23:30 | NUR ---
# 20 gauge angiocath placed to LT AC. Use of asceptic technique. Opsite placed over site. Blood return noted. Blood for lab drawn from site. Flushed with 10 cc of normal saline. No evidence of infiltration noted. Patient tolerated well.
[2019-10-25 00:05] LABS: BASOPHILS % (AUTO) 0.6 % (0.0-2.0); EOSINOPHILS % (AUTO) 0.4 % (0.0-4.0); HEMATOCRIT 43.2 % (36-48); HEMOGLOBIN 14.7 g/dL (12.0-16.0); LYMPHOCYTES # (AUTO) 1.7 K/uL (1.0-5.5); LYMPHOCYTES % (AUTO) 21.4 % (20.5-51.5); MEAN CORPUSCULAR HEMOGLOBIN 33 pg (27-31); MEAN CORPUSCULAR HGB CONC 34 % (32-36); MEAN CORPUSCULAR VOLUME 98 fL (79.0-98.0); MONOCYTES # (AUTO) 0.4 K/uL (0.0-1.0); MONOCYTES % (AUTO) 5.6 % (1.7-9.3); NEUTROPHILS # (AUTO) 5.7 K/uL (1.8-7.7); PLATELET COUNT (AUTO) 309 K/uL (130-430); RED BLOOD CELL COUNT(AUTO) 4.42 MIL/uL (4.2-6.2); RED CELL DISTRIBUTION WIDTH 13.3 % (9.0-15.0); WHITE BLOOD COUNT (AUTO) 7.9 K/uL (4.8-10.8)
[2019-10-25 00:13] LABS: CALCIUM 8.6 mg/dL (8.4-11.0); CREATININE 0.76 mg/dL (0.55-1.30); POTASSIUM 3.1 mmol/L (3.5-5.1)
[2019-10-25 00:15] LABS: PROTHROMBIN TIME 10.1 SECS (9.5-12.5)
[2019-10-25 00:23] LABS: BILIRUBIN,URINE NEGATIVE (NEGATIVE); CLARITY/URINE CLEAR (CLEAR); COLOR,URINE YELLOW (YELLOW); GLUCOSE,URINE NEGATIVE (NEGATIVE); KETONES,URINE NEGATIVE (NEGATIVE); LEUKOCYTE ESTERASE ,URINE NEGATIVE (NEGATIVE); NITRITE, URINE NEGATIVE (NEGATIVE); PH,URINE 7.5 (5.0-8.0); PROTEIN URINE NEGATIVE (NEGATIVE); UROBILINOGEN,URINE 0.2 (0.2-1.0)
[2019-10-25 00:24] LABS: ALBUMIN 4.1 g/dL (3.4-4.8); TOTAL BILIRUBIN 0.7 mg/dL (0.0-1.0)
[2019-10-25 00:26] LABS: BLOOD, URINE TRACE (NEGATIVE)
[2019-10-25] MEDS ORDERED: KETOROLAC TROMETHAMINE 30 MG VIAL IVP ONE (00:30)
[2019-10-25 00:36] LABS: BARBITURATE, URINE NEGATIVE (NEG <=200); BENZODIAZEPINE, URINE NEGATIVE (NEG <=150); CANNABINOID, URINE POSITIVE (NEG <=50); COCAINE, URINE NEGATIVE (NEG <=150); METHAMPHETAMINES SCREEN,URINE NEGATIVE (NEG <=500); OPIATE, URINE POSITIVE (NEG <=100); PHENCYCLIDINE SCREEN,URINE NEGATIVE (NEG <=25); UR TRICYCLIC ANTIDEPRESSANTS NEGATIVE (NEG <=300); URINE AMPHETAMINE NEGATIVE (NEG <=500); URINE METHADONE NEGATIVE (NEG <=200); URINE OXYCODONE SCREEN NEGATIVE (NEG <=100); URINE PROPOXYPHENE SCREEN NEGATIVE (NEG <=300)
[2019-10-25 00:40] LABS: BACTERIA,URINE FEW /HPF (None Seen); WBC,URINE 0-3 /HPF (0-3)
--- NOTE | 2019-10-25 00:59 | NUR ---
Patient requesting pain medication. reports pain is 8/10 in severity. Patient observed text messaging on cell phone. Patient also reports that still having nausea. VSS. MD notified. No new orders.
[2019-10-25] MEDS ORDERED: DIPHENOXYLATE HCL/ATROP SULF 2.5 MG TAB PO ONE (01:45)
[2019-10-25] MEDS ORDERED: HYDROcodone/ACETAMIN 5-325 MG TAB (NORCO/ VICODIN) PO ONE (01:45)
[2019-10-25] MEDS ORDERED: ONDANSETRON HCL 4 MG/2 ML VIAL IVP ONE (01:45)
--- NOTE | 2019-10-25 01:47 | NUR ---
PATIENT COMPLAINS OF PAIN AND NAUSEA. MD NOTIFIED. PATIENT IS RESTING IN BED.
[2019-10-25 02:15] VITALS: BP_SYST 143
--- NOTE | 2019-10-25 02:15 | NUR ---
patient was picked up and taken home by .
--- NOTE | 2019-10-25 02:15 | NUR ---
Patient given written and verbal discharge instructions and verbalizes understanding. ER MD discussed with patient the results and treatment provided. Patient in stable condition. ID arm band removed. IV catheter removed intact and dressing applied, no active bleeding. Rx of ACETAMINOPHEN given. Patient educated on pain management and to follow up with PMD. Pain Scale 5/10. PATIENT will picker and sorter load and unload prescribed medications. Opportunity for questions provided and answered. Medication side effect fact sheet provided.
== END 2019-10-25 02:15 | disposition home or self-care (01) ==
LOC: SED 22:11
DX: K52.9 Noninfective gastroenteritis and colitis, unspecified (principal); R11.2 Nausea with vomiting, unspecified; N83.202 Unspecified ovarian cyst, left side; F41.9 Anxiety disorder, unspecified; Z88.0 Allergy status to penicillin; K21.9 Gastro-esophageal reflux disease without esophagitis
CPT/HCPCS: 36415; 74176; 80053; 80307; 81000; 81025; 82150; 83690; 85025; 85610; 96361; 96374; 96375; 96376; 99284; J1885; J2405 ×2; J7030

== ENCOUNTER 2020-01-30 18:17 | Emergency (ER) | payer MEDICAID ==
[~2020-01-30] VITALS: Ht 170.2 cm; Wt 77.1 kg
[2020-01-30 18:30] VITALS: BP_SYST 157
--- NOTE | 2020-01-30 18:40 | NUR ---
Patient triaged and placed in waiting room. VSS and patient appears in no acute distress at this time. Accompanied by self , awaiting available bed, and MD notified of need for MSE.
--- NOTE | 2020-01-30 18:42 | NUR ---
Pt brought by self, A&Ox4, pt presents to ER with L knee pain and swelling , pt states she would like her L knee to be drained, pt also c/o foreign object on R eye, mild redness noted, pt afebrile, denies cough or congestion
[2020-01-30 20:25] LABS: BASOPHILS % (AUTO) 0.5 % (0.0-2.0); EOSINOPHILS % (AUTO) 0.4 % (0.0-4.0); HEMATOCRIT 40.4 % (36-48); HEMOGLOBIN 13.7 g/dL (12.0-16.0); LYMPHOCYTES # (AUTO) 1.1 K/uL (1.0-5.5); LYMPHOCYTES % (AUTO) 14.1 % (20.5-51.5); MEAN CORPUSCULAR HEMOGLOBIN 33 pg (27-31); MEAN CORPUSCULAR HGB CONC 34 % (32-36); MEAN CORPUSCULAR VOLUME 99 fL (79.0-98.0); MONOCYTES # (AUTO) 0.1 K/uL (0.0-1.0); MONOCYTES % (AUTO) 1.9 % (1.7-9.3); NEUTROPHILS # (AUTO) 6.2 K/uL (1.8-7.7); NEUTROPHILS % (AUTO) 83.1 % (40.0-70.0); PLATELET COUNT (AUTO) 313 K/uL (130-430); RED CELL DISTRIBUTION WIDTH 12.2 % (9.0-15.0); WHITE BLOOD COUNT (AUTO) 7.5 K/uL (4.8-10.8)
[2020-01-30 20:37] LABS: ANION GAP 5 (5-15); CALCIUM 8.7 mg/dL (8.4-11.0); CHLORIDE 104 mmol/L (98-107); CREATININE 0.86 mg/dL (0.55-1.30); GLUCOSE 148 mg/dL (70-99); POTASSIUM 4.6 mmol/L (3.5-5.1); SODIUM SERUM 134 mmol/L (136-145); UREA NITROGEN, BLOOD 11 mg/dL (8-21)
[2020-01-30 20:40] LABS: GFR AFRICAN AMERICAN 95 mL/min (>90)
[2020-01-30 20:51] LABS: C-REACTIVE PROTEIN QUANT < 0.2 mg/dL (0-0.5)
--- NOTE | 2020-01-30 21:45 | NUR ---
Dr Hernandes assessing patient in the triage room
--- NOTE | 2020-01-30 22:00 | NUR ---
Pt signed AMA form given by Dr Hernandes, few minutes later patient states she is not voluntarily leaving the hospital, pt states she wants to wait few hours to get a room, Dr Hernandes notified, AMA form given to electromedical equipment technician, pt awared no rooms available at this time.
[2020-01-31 00:07] LABS: ERYTHROCYTE SEDIMENTATION RATE 6 MM/HR (0-20)
== END 2020-01-30 22:00 | disposition left against medical advice (07) ==
LOC: SED 18:17
DX: M10.9 Gout, unspecified (principal); K21.9 Gastro-esophageal reflux disease without esophagitis; F41.9 Anxiety disorder, unspecified; Z88.0 Allergy status to penicillin
CPT/HCPCS: 36415; 73560-TC; 80048; 85025; 85651-TC; 86140; 99284

== ENCOUNTER 2020-04-08 19:24 | Emergency (ER) | payer MEDICAID ==
[~2020-04-08] VITALS: Ht 170.2 cm; Wt 81.2 kg
[2020-04-08 19:30] VITALS: BP_SYST 145
[2020-04-08 20:11] VITALS: BP_SYST 125
== END 2020-04-08 20:11 | disposition home or self-care (01) ==
LOC: SED 19:24
DX: T14.8XXA Other injury of unspecified body region, initial encounter (principal); K21.9 Gastro-esophageal reflux disease without esophagitis; F41.9 Anxiety disorder, unspecified; Z88.0 Allergy status to penicillin; W57.XXXA Bitten or stung by nonvenomous insect and other nonvenomous arthropods, initial encounter; Y93.89 Activity, other specified; Y92.89 Other specified places as the place of occurrence of the external cause; Y99.8 Other external cause status
CPT/HCPCS: 99283

== ENCOUNTER 2020-08-29 19:22 | Emergency (ER) | payer MEDICAID ==
[~2020-08-29] VITALS: Ht 170.2 cm; Wt 71.2 kg
[2020-08-29 19:35] VITALS: BP_SYST 155
[2020-08-29 20:47] LABS: BASOPHILS # (AUTO) 0.1 K/uL (0.0-0.2); BASOPHILS % (AUTO) 0.7 % (0.0-2.0); EOSINOPHILS # (AUTO) 0.1 K/uL (0.0-0.4); EOSINOPHILS % (AUTO) 1.5 % (0.0-4.0); HEMATOCRIT 40.4 % (36-48); HEMOGLOBIN 14.1 g/dL (12.0-16.0); LYMPHOCYTES # (AUTO) 2.6 K/uL (1.0-5.5); LYMPHOCYTES % (AUTO) 30.7 % (20.5-51.5); MEAN CORPUSCULAR HEMOGLOBIN 32 pg (27-31); MEAN CORPUSCULAR HGB CONC 35 % (32-36); MEAN CORPUSCULAR VOLUME 92 fL (79.0-98.0); MONOCYTES # (AUTO) 0.5 K/uL (0.0-1.0); MONOCYTES % (AUTO) 6.4 % (1.7-9.3); NEUTROPHILS # (AUTO) 5.1 K/uL (1.8-7.7); NEUTROPHILS % (AUTO) 60.7 % (40.0-70.0); PLATELET COUNT (AUTO) 430 K/uL (130-430); RED BLOOD CELL COUNT(AUTO) 4.39 MIL/uL (4.2-6.2); RED CELL DISTRIBUTION WIDTH 12.5 % (9.0-15.0); WHITE BLOOD COUNT (AUTO) 8.4 K/uL (4.8-10.8)
[2020-08-29 21:38] LABS: CREATININE 0.81 mg/dL (0.55-1.30)
[2020-08-29 21:57] LABS: BILIRUBIN,URINE NEGATIVE (NEGATIVE); BLOOD, URINE NEGATIVE (NEGATIVE); CLARITY/URINE CLEAR (CLEAR); COLOR,URINE YELLOW (YELLOW); GLUCOSE,URINE NEGATIVE (NEGATIVE); KETONES,URINE NEGATIVE (NEGATIVE); LEUKOCYTE ESTERASE ,URINE NEGATIVE (NEGATIVE); NITRITE, URINE NEGATIVE (NEGATIVE); PH,URINE 5.5 (5.0-8.0); PROTEIN URINE NEGATIVE (NEGATIVE); UROBILINOGEN,URINE 0.2 (0.2-1.0)
[2020-08-29 22:06] LABS: ANION GAP 10 (5-15); CHLORIDE 105 mmol/L (98-107); GFR AFRICAN AMERICAN 102 mL/min (>90); GLUCOSE 90 mg/dL (70-99); POTASSIUM 4.1 mmol/L (3.5-5.1); SODIUM SERUM 139 mmol/L (136-145)
[2020-08-29 22:07] LABS: ASPARTATE AMINOTRANSFERASE 25 U/L (10-37); TOTAL BILIRUBIN 0.4 mg/dL (0.0-1.0); UREA NITROGEN, BLOOD 10 mg/dL (8-21)
[2020-08-29 22:08] LABS: ALANINE AMINOTRANSFERASE 45 U/L (12-78); ALBUMIN 4.3 g/dL (3.4-4.8); CALCIUM 8.6 mg/dL (8.4-11.0)
[2020-08-29] MEDS ORDERED: HYDROcodone/ACETAMIN 10-325 MG TAB PO ONE (22:15)
[2020-08-29] MEDS ORDERED: KETOROLAC TROMETHAMINE 60 MG/2 ML VIAL IM ONE (22:15)
[2020-08-29] MEDS ORDERED: HYDROcodone/ACETAMIN 10-325 MG TAB ONE (22:15)
[2020-08-29 22:19] LABS: C-REACTIVE PROTEIN QUANT < 0.2 mg/dL (0-0.5)
[2020-08-29] MEDS ORDERED: IMI50 PO (22:31)
[2020-08-29] MEDS ORDERED: PRED20TA PO (22:32)
[2020-08-29] MEDS ORDERED: AZIT250T PO (22:32)
[2020-08-29] MEDS ORDERED: ONDA4TAB5 PO (22:54)
[2020-08-29] MEDS ORDERED: ONDANSETRON 4 MG ODT TAB PO ONE (23:00)
[2020-08-29 23:13] VITALS: BP_SYST 112
== END 2020-08-29 23:11 | disposition home or self-care (01) ==
LOC: SED 19:22
DX: J40 Bronchitis, not specified as acute or chronic (principal); R51.9 Headache, unspecified; K21.9 Gastro-esophageal reflux disease without esophagitis; F41.9 Anxiety disorder, unspecified; M10.9 Gout, unspecified; Z88.0 Allergy status to penicillin; Z79.899 Other long term (current) drug therapy; Z20.822 Contact with and (suspected) exposure to COVID-19
CPT/HCPCS: 71045; 80053; 81003; 81025; 83605; 84145; 85025; 86140; 96372; 99284; J1885; Q0162; U0003

== ENCOUNTER 2021-04-07 09:31 | Emergency (ER) | payer MEDICAID ==
[~2021-04-07] VITALS: Ht 170.2 cm; Wt 72.6 kg
[~2021-04-07 09:31] MED LIST changes: +IMI50 PO; -LIDOCAINE 1% 10 MG/ML, 20 ML MDV INJ ONE; -MORPHINE 4 MG/ML INJ. SYRINGE IVP ONE; -MORPHINE 4 MG/ML INJ. SYRINGE ONE; +ONDA4TAB5 PO; -ONDANSETRON HCL 4 MG/2 ML VIAL IVP ONE; -ONDANSETRON HCL 4 MG/2 ML VIAL ONE; +PRED20TA PO; +ZIT250 PO; -methylPREDNISolone SOD SUCC/PF 62.5 MG/ML VIAL IVP ONE
[2021-04-07 10:05] VITALS: BP_SYST 126
[2021-04-07] MEDS ORDERED: MORPHINE 2 MG/ML INJ. SYRINGE IVP ONE (11:00)
[2021-04-07] MEDS ORDERED: NACL 0.9% 1,000 ML IV ONE (11:00)
[2021-04-07] MEDS ORDERED: ONDANSETRON HCL 4 MG/2 ML VIAL IVP ONE (11:00)
[2021-04-07 11:30] LABS: BASOPHILS # (AUTO) 0.1 K/uL (0.0-0.2); BASOPHILS % (AUTO) 0.7 % (0.0-2.0); EOSINOPHILS # (AUTO) 0.1 K/uL (0.0-0.4); EOSINOPHILS % (AUTO) 1.5 % (0.0-4.0); HEMATOCRIT 38.6 % (36-48); HEMOGLOBIN 13.1 g/dL (12.0-16.0); LYMPHOCYTES # (AUTO) 1.9 K/uL (1.0-5.5); LYMPHOCYTES % (AUTO) 23.9 % (20.5-51.5); MEAN CORPUSCULAR HEMOGLOBIN 32 pg (27-31); MEAN CORPUSCULAR HGB CONC 34 % (32-36); MEAN CORPUSCULAR VOLUME 93 fL (79.0-98.0); MONOCYTES # (AUTO) 0.5 K/uL (0.0-1.0); MONOCYTES % (AUTO) 6.9 % (1.7-9.3); NEUTROPHILS # (AUTO) 5.2 K/uL (1.8-7.7); PLATELET COUNT (AUTO) 369 K/uL (130-430); RED BLOOD CELL COUNT(AUTO) 4.17 MIL/uL (4.2-6.2); RED CELL DISTRIBUTION WIDTH 13.6 % (9.0-15.0); WHITE BLOOD COUNT (AUTO) 7.8 K/uL (4.8-10.8)
[2021-04-07 11:33] LABS: CALCIUM 9.9 mg/dL (8.4-11.0); CREATININE 0.79 mg/dL (0.55-1.30); POTASSIUM 4.7 mmol/L (3.5-5.1)
[2021-04-07 11:39] LABS: TOTAL BILIRUBIN 0.3 mg/dL (0.0-1.0)
[2021-04-07 11:40] LABS: BILIRUBIN,URINE NEGATIVE (NEGATIVE); BLOOD, URINE 3+ (NEGATIVE); CLARITY/URINE SL CLOUDY (CLEAR); COLOR,URINE YELLOW (YELLOW); GLUCOSE,URINE NEGATIVE (NEGATIVE); KETONES,URINE TRACE (NEGATIVE); LEUKOCYTE ESTERASE ,URINE 2+ (NEGATIVE); NITRITE, URINE NEGATIVE (NEGATIVE); PROTEIN URINE 1+ (NEGATIVE); UROBILINOGEN,URINE 0.2 (0.2-1.0)
[2021-04-07 11:53] LABS: BACTERIA,URINE FEW /HPF (None Seen); MUCUS,URINE 1+ /LPF (None Seen); WBC,URINE >100 /HPF (0-3)
[2021-04-07] MEDS ORDERED: CIPROFLOXACIN LACT 400 MG/D5W 200 ML IV ONE (12:15)
[2021-04-07] MEDS ORDERED: SULF1TAB48 PO (13:24)
[2021-04-07] MEDS ORDERED: PHEN-726 PO (13:24)
[2021-04-07 14:15] VITALS: BP_SYST 124
[2021-04-07] MEDS ORDERED: CIPROFLOXACIN LACT 400 MG/D5W 200 ML IV SCH (21:00)
== END 2021-04-07 14:15 | disposition home or self-care (01) ==
LOC: SED 09:31
DX: N39.0 Urinary tract infection, site not specified (principal); F31.9 Bipolar disorder, unspecified; F41.9 Anxiety disorder, unspecified; Z88.0 Allergy status to penicillin; Z79.899 Other long term (current) drug therapy
CPT/HCPCS: 36415; 80053; 81000; 81025; 83605; 85025; 87040; 87086; 96374; 96375; 99284; J0744; J2270; J2405

== ENCOUNTER 2021-08-09 09:34 | Emergency (ER) | payer MEDICAID, SELFPAY ==
[~2021-08-09 09:34] MED LIST changes: +PHEN-726 PO; +SULF1TAB48 PO
[2021-08-09 10:25] VITALS: BP_SYST 130
--- NOTE | 2021-08-09 10:25 | NUR ---
Patient triaged and placed in waiting room. VSS and patient appears in no acute distress at this time. Accompanied by SELF, awaiting available bed, and MD notified of need for MSE.
--- NOTE | 2021-08-09 10:30 | NUR ---
ER examining patient IN ED LOBBY
[2021-08-09] MEDS ORDERED: NAPROXEN 250 MG TABLET PO ONE (10:45)
== END 2021-08-09 12:00 | disposition left against medical advice (07) ==
LOC: SED 09:34
DX: M25.462 Effusion, left knee (principal); M10.9 Gout, unspecified; F32.9 Major depressive disorder, single episode, unspecified; F41.9 Anxiety disorder, unspecified; K21.9 Gastro-esophageal reflux disease without esophagitis; Z88.0 Allergy status to penicillin; Z79.899 Other long term (current) drug therapy
CPT/HCPCS: 99281

== ENCOUNTER 2021-08-10 14:02 | Emergency (ER) | payer MEDICAID, SELFPAY ==
[~2021-08-10] VITALS: Ht 167.6 cm; Wt 71.7 kg
[2021-08-10 14:30] VITALS: BP_SYST 134
--- NOTE | 2021-08-10 14:30 | NUR ---
PT TRIAGED AND PLACED IN LOBBY FOR AVAILABLE BED
--- NOTE | 2021-08-10 14:35 | NUR ---
PT CAME IN FOR LEFT KNEE PAIN AND SWELLING X 2 DAYS. PT DENIES ANY INJURY OR TRAUMA, AMBULATORY, AAOX4, VSS
--- NOTE | 2021-08-10 15:00 | NUR ---
ER DR. NIETO EXAMINING PT
[2021-08-10] MEDS ORDERED: LIDOCAINE/EPI 1% 1:100000 20 ML VIAL INJ ONE (16:00)
--- NOTE | 2021-08-10 16:30 | NUR ---
Patient given written and verbal discharge instructions and verbalizes understanding. ER MD discussed with patient the results and treatment provided. Patient in stable condition. ID arm band removed. NO Rx given. Patient educated on pain management and to follow up with PMD. Pain Scale 0/10. Opportunity for questions provided and answered. Medication side effect fact sheet provided.
[2021-08-10 20:17] VITALS: BP_SYST 106
== END 2021-08-10 16:30 | disposition home or self-care (01) ==
LOC: SED 14:02
DX: M25.462 Effusion, left knee (principal); M10.9 Gout, unspecified; K21.9 Gastro-esophageal reflux disease without esophagitis; F32.9 Major depressive disorder, single episode, unspecified; F41.9 Anxiety disorder, unspecified; Z88.0 Allergy status to penicillin
CPT/HCPCS: 99284

== ENCOUNTER 2021-08-30 17:46 | Emergency (ER) | payer MEDICAID, SELFPAY ==
[~2021-08-30] VITALS: Ht 170.2 cm; Wt 77.1 kg
[2021-08-30 17:48] VITALS: BP_SYST 152
--- NOTE | 2021-08-30 17:48 | NUR ---
Placed in room 6 . Placed on arcade technician, blood pressure machine and pulse oximeter. To gown for exam. Side rails up. Report given to ALBERT GUILLEN.
[2021-08-30] MEDS ORDERED: fentaNYL CITRATE/PF 100 MCG/2 ML AMP IVP ONE ×2 (18:15→19:45)
--- NOTE | 2021-08-30 18:32 | NUR ---
lasd at bedside
[2021-08-30 18:39] LABS: BASOPHILS % (AUTO) 0.7 % (0.0-2.0); HEMATOCRIT 35.4 % (36-48); HEMOGLOBIN 12.3 g/dL (12.0-16.0); LYMPHOCYTES # (AUTO) 1.6 K/uL (1.0-5.5); LYMPHOCYTES % (AUTO) 27.6 % (20.5-51.5); MEAN CORPUSCULAR HEMOGLOBIN 31 pg (27-31); MEAN CORPUSCULAR HGB CONC 35 % (32-36); MEAN CORPUSCULAR VOLUME 89 fL (79.0-98.0); MONOCYTES # (AUTO) 0.5 K/uL (0.0-1.0); MONOCYTES % (AUTO) 8.1 % (1.7-9.3); NEUTROPHILS # (AUTO) 3.7 K/uL (1.8-7.7); NEUTROPHILS % (AUTO) 63.6 % (40.0-70.0); PLATELET COUNT (AUTO) 328 K/uL (130-430); RED BLOOD CELL COUNT(AUTO) 3.96 MIL/uL (4.2-6.2); RED CELL DISTRIBUTION WIDTH 12.9 % (9.0-15.0); WHITE BLOOD COUNT (AUTO) 5.8 K/uL (4.8-10.8)
[2021-08-30 19:03] LABS: CALCIUM 9.1 mg/dL (8.4-11.0); CREATININE 0.93 mg/dL (0.55-1.30); POTASSIUM 3.7 mmol/L (3.5-5.1)
[2021-08-30 19:10] LABS: ALBUMIN 3.7 g/dL (3.4-4.8); TOTAL BILIRUBIN 0.2 mg/dL (0.0-1.0)
--- NOTE | 2021-08-30 19:10 | NUR ---
report to tarsha singh
--- NOTE | 2021-08-30 19:50 | NUR ---
PATIENT A/OX4. PATIENT LYING IN BED WITH EYES OPEN, CHEST RISE AND FALL SYMMETRICAL, NO C/O PAIN OR S/S OR DISTRESS. BED IN LOW AND LOCKED POSITION.
[2021-08-30] MEDS ORDERED: HYDR-3698 PO (20:05)
[2021-08-30] MEDS ORDERED: LURA20TA PO (20:05)
[2021-08-30] MEDS ORDERED: LAMO200T2 PO (20:05)
[2021-08-30] MEDS ORDERED: OLAN1TAB3 (20:05)
[2021-08-30] MEDS ORDERED: HYDR-3610 PO (20:05)
[2021-08-30] MEDS ORDERED: BACL10TA PO (20:05)
[2021-08-30] MEDS ORDERED: LITH150C PO (20:05)
[2021-08-30] MEDS ORDERED: BUSP5TAB3 PO (20:05)
[2021-08-30] MEDS ORDERED: MELO15TA13 PO (20:05)
[2021-08-30] MEDS ORDERED: NEU300 PO (20:05)
--- NOTE | 2021-08-30 20:11 | NUR ---
PATIENT BROUGHT TO CT.
[2021-08-30] MEDS ORDERED: NOR10 PO (20:58)
--- NOTE | 2021-08-30 21:06 | NUR ---
Patient given written and verbal discharge instructions and verbalizes understanding. ER MD discussed with patient the results and treatment provided. Patient in stable condition. ID arm band removed. IV catheter removed intact and dressing applied, no active bleeding. Rx of NORVASC given. Patient educated on pain management and to follow up with PMD. Pain Scale . Opportunity for questions provided and answered. Medication side effect fact sheet provided.
[2021-08-30 21:07] VITALS: BP_SYST 133
== END 2021-08-30 21:07 | disposition home or self-care (01) ==
LOC: SED 17:46
DX: S13.4XXA Sprain of ligaments of cervical spine, initial encounter (principal); S33.5XXA Sprain of ligaments of lumbar spine, initial encounter; S20.219A Contusion of unspecified front wall of thorax, initial encounter; K21.9 Gastro-esophageal reflux disease without esophagitis; F32.9 Major depressive disorder, single episode, unspecified; F41.9 Anxiety disorder, unspecified; Z88.0 Allergy status to penicillin; Z79.899 Other long term (current) drug therapy; V49.49XA Driver injured in collision with other motor vehicles in traffic accident, initial encounter; Y93.89 Activity, other specified; Y92.89 Other specified places as the place of occurrence of the external cause; Y99.8 Other external cause status
CPT/HCPCS: 36415; 71260; 72125; 74177; 76376; 80053; 84703; 85025; 96374; 96376; 99285; J3010; Q9967

== ENCOUNTER 2021-12-12 08:30 | Emergency (ER) | payer MEDICAID ==
[~2021-12-12] VITALS: Ht 170.2 cm; Wt 85.3 kg
[2021-12-12 08:30] VITALS: BP_SYST 138
[~2021-12-12 08:30] MED LIST changes: +BACL10TA PO; +BUSP5TAB3 PO; +HYDR-3610 PO; +HYDR-3698 PO; +LAMO200T2 PO; +LITH150C PO; +LURA20TA PO; +MELO15TA13 PO; +NEU300 PO; +NOR10 PO; +OLAN1TAB3
--- NOTE | 2021-12-12 08:30 | NUR ---
Placed in room 7 . Placed on satellite project site monitor, blood pressure machine and pulse oximeter. To gown for exam. Side rails up. Report given to ALBERT ALARCON.
--- NOTE | 2021-12-12 08:40 | NUR ---
PT AMBULATES TO RESTROOM WITH STEADY GAIT TO PROVIDE URINE SAMPLE
--- NOTE | 2021-12-12 08:53 | NUR ---
Pt here from home reporting vulvular swelling and pain 04/27 since yesterday. Alert and oriented. States pain is interfering with her walking, but denies urinary sx. Awaiting MD hercules.
--- NOTE | 2021-12-12 10:20 | NUR ---
Dr Walker with female javascript application developer to bedside to examine patient
[2021-12-12] MEDS ORDERED: MORPHINE 4 MG INJ. 4 MG/ML VIAL IM ONE (10:45)
[2021-12-12] MEDS ORDERED: MORPHINE 4 MG INJ. 4 MG/ML VIAL IVP ONE (10:45)
[2021-12-12 11:09] LABS: BASOPHILS % (AUTO) 0.6 % (0.0-2.0); HEMATOCRIT 26.3 % (36-48); HEMOGLOBIN 8.8 g/dL (12.0-16.0); LYMPHOCYTES # (AUTO) 1.6 K/uL (1.0-5.5); LYMPHOCYTES % (AUTO) 23.1 % (20.5-51.5); MEAN CORPUSCULAR HEMOGLOBIN 30 pg (27-31); MEAN CORPUSCULAR HGB CONC 34 % (32-36); MEAN CORPUSCULAR VOLUME 90 fL (79.0-98.0); MONOCYTES # (AUTO) 0.4 K/uL (0.0-1.0); MONOCYTES % (AUTO) 5.4 % (1.7-9.3); NEUTROPHILS # (AUTO) 4.9 K/uL (1.8-7.7); NEUTROPHILS % (AUTO) 70.9 % (40.0-70.0); PLATELET COUNT (AUTO) 411 K/uL (130-430); RED BLOOD CELL COUNT(AUTO) 2.92 MIL/uL (4.2-6.2); RED CELL DISTRIBUTION WIDTH 13.8 % (9.0-15.0); WHITE BLOOD COUNT (AUTO) 6.9 K/uL (4.8-10.8)
[2021-12-12 11:11] LABS: ANION GAP 6 (5-15); CALCIUM 8.3 mg/dL (8.4-11.0); CHLORIDE 105 mmol/L (98-107); CREATININE 0.92 mg/dL (0.55-1.30); GLUCOSE 97 mg/dL (70-99); POTASSIUM 3.7 mmol/L (3.5-5.1); SODIUM SERUM 138 mmol/L (136-145); UREA NITROGEN, BLOOD 6 mg/dL (8-21)
[2021-12-12 11:16] LABS: PROTHROMBIN TIME 9.8 SECS (9.5-12.5)
[2021-12-12 11:26] LABS: ALANINE AMINOTRANSFERASE 53 U/L (12-78); ALBUMIN 2.8 g/dL (3.4-4.8); ASPARTATE AMINOTRANSFERASE 38 U/L (10-37); TOTAL BILIRUBIN 0.4 mg/dL (0.0-1.0)
[2021-12-12 11:31] LABS: GFR AFRICAN AMERICAN 87 mL/min (>90)
[2021-12-12 11:52] LABS: ERYTHROCYTE SEDIMENTATION RATE 34 MM/HR (0-20)
[2021-12-12 12:06] LABS: BILIRUBIN,URINE NEGATIVE (NEGATIVE); BLOOD, URINE 2+ (NEGATIVE); CLARITY/URINE CLEAR (CLEAR); COLOR,URINE YELLOW (YELLOW); GLUCOSE,URINE NEGATIVE (NEGATIVE); KETONES,URINE NEGATIVE (NEGATIVE); LEUKOCYTE ESTERASE ,URINE NEGATIVE (NEGATIVE); NITRITE, URINE NEGATIVE (NEGATIVE); PROTEIN URINE NEGATIVE (NEGATIVE); UROBILINOGEN,URINE 0.2 (0.2-1.0)
[2021-12-12] MEDS ORDERED: iohexoL 350 mgI/mL, 100 ML INFUS..BTL IV ONE (12:24)
--- NOTE | 2021-12-12 12:44 | NUR ---
# 20 gauge angiocath placed to L AC. Use of asceptic technique. Opsite placed over site. Blood return noted. Blood for lab drawn from site. Flushed with 10 cc of normal saline. No evidence of infiltration noted. Patient tolerated well.
[2021-12-12 12:47] LABS: BACTERIA,URINE RARE /HPF (None Seen); WBC,URINE 0-3 /HPF (0-3)
--- NOTE | 2021-12-12 13:02 | NUR ---
Pt transported to CT scan via wheelchair
--- NOTE | 2021-12-12 13:31 | NUR ---
Called dietary for a Regular diet.
--- NOTE | 2021-12-12 13:35 | NUR ---
Pt resting in bed. NAD. Reports Morphine was effective in managing pain. Will continue to monitor closely.
[2021-12-12] MEDS ORDERED: HYDROcodone/ACETAMIN 10-325 MG TAB PO ONE (14:15)
[2021-12-12] MEDS ORDERED: POLY119P3 PO (14:21)
[2021-12-12 15:18] VITALS: BP_SYST 128
--- NOTE | 2021-12-12 15:20 | NUR ---
Patient given written and verbal discharge instructions and verbalizes understanding. ER MD discussed with patient the results and treatment provided. Patient in stable condition. ID arm band removed. IV catheter removed intact and dressing applied, no active bleeding. Rx of Clearlax given. Patient educated on pain management and to follow up with PMD. Pain improved. Opportunity for questions provided and answered. Medication side effect fact sheet provided.
== END 2021-12-12 15:20 | disposition home or self-care (01) ==
LOC: SED 08:30
DX: I89.0 Lymphedema, not elsewhere classified (principal); G89.4 Chronic pain syndrome; D50.0 Iron deficiency anemia secondary to blood loss (chronic); F11.20 Opioid dependence, uncomplicated; K21.9 Gastro-esophageal reflux disease without esophagitis; Z88.0 Allergy status to penicillin
CPT/HCPCS: 36415; 71275; 76376; 80053; 81000; 83605; 84484; 85025; 85379; 85610; 85651; 85730; 86140; 87040; 87086; 93005; 93970; 96372; 99285; J2270; Q9967

== ENCOUNTER 2022-06-03 17:22 | Emergency (ER) | payer MEDICAID ==
[~2022-06-03] VITALS: Ht 170.2 cm; Wt 74.8 kg
[2022-06-03 17:22] VITALS: BP_SYST 121
[~2022-06-03 17:22] MED LIST changes: -HYDR-3610 PO; -ONDA4TAB5 PO; -PHEN-726 PO; +POLY119P3 PO; -PRED20TA PO; -SULF1TAB48 PO; -ZIT250 PO
== END 2022-06-03 19:45 | disposition left against medical advice (07) ==
LOC: SED 17:22
DX: R05.9 Cough, unspecified (principal); R50.9 Fever, unspecified; R11.10 Vomiting, unspecified; Z53.21 Procedure and treatment not carried out due to patient leaving prior to being seen by health care provider

== ENCOUNTER 2022-07-14 11:56 | Emergency (ER) | payer MEDICAID ==
[~2022-07-14] VITALS: Ht 170.2 cm; Wt 74.8 kg
[2022-07-14 12:23] VITALS: BP_SYST 139
[2022-07-14 15:13] LABS: BASOPHILS % (AUTO) 0.5 % (0.0-2.0); HEMATOCRIT 44.1 % (36-48); HEMOGLOBIN 15.2 g/dL (12.0-16.0); LYMPHOCYTES # (AUTO) 1.4 K/uL (1.0-5.5); LYMPHOCYTES % (AUTO) 18.5 % (20.5-51.5); MEAN CORPUSCULAR HEMOGLOBIN 31 pg (27-31); MEAN CORPUSCULAR HGB CONC 35 % (32-36); MEAN CORPUSCULAR VOLUME 90 fL (79.0-98.0); MONOCYTES # (AUTO) 0.4 K/uL (0.0-1.0); MONOCYTES % (AUTO) 4.8 % (1.7-9.3); NEUTROPHILS # (AUTO) 5.9 K/uL (1.8-7.7); NEUTROPHILS % (AUTO) 76.2 % (40.0-70.0); PLATELET COUNT (AUTO) 367 K/uL (130-430); RED CELL DISTRIBUTION WIDTH 13.1 % (9.0-15.0); WHITE BLOOD COUNT (AUTO) 7.8 K/uL (4.8-10.8)
[2022-07-14 15:31] LABS: PROTHROMBIN TIME 10.1 SECS (9.5-12.5)
[2022-07-14 15:41] LABS: ALANINE AMINOTRANSFERASE 51 U/L (12-78); ALBUMIN 4.5 g/dL (3.4-4.8); AMYLASE 85 U/L (0-100); ANION GAP 9 (5-15); ASPARTATE AMINOTRANSFERASE 35 U/L (10-37); CALCIUM 9.2 mg/dL (8.4-11.0); CHLORIDE 99 mmol/L (98-107); CREATININE 0.73 mg/dL (0.55-1.30); LACTATE DEHYDROGENASE 184 U/L (81-234); LIPASE 54 U/L (73-393); TOTAL BILIRUBIN 1.1 mg/dL (0.0-1.0); UREA NITROGEN, BLOOD 9 mg/dL (8-21)
[2022-07-14 15:46] LABS: C-REACTIVE PROTEIN QUANT < 0.2 mg/dL (0-0.5); GFR AFRICAN AMERICAN 114 mL/min (>90); GLUCOSE 109 mg/dL (70-99)
[2022-07-14 15:53] LABS: ACETONE, SERUM NEGATIVE (NEGATIVE)
[2022-07-14] MEDS ORDERED: CEPH250C PO (16:01)
[2022-07-14] MEDS ORDERED: IBUP-1969 PO (16:01)
[2022-07-14] MEDS ORDERED: ONDA-8 TL (16:01)
[2022-07-14 16:25] VITALS: BP_SYST 121
== END 2022-07-14 16:25 | disposition home or self-care (01) ==
LOC: SED 11:56
DX: A05.9 Bacterial foodborne intoxication, unspecified (principal); R10.13 Epigastric pain; R11.10 Vomiting, unspecified; R19.7 Diarrhea, unspecified; K21.9 Gastro-esophageal reflux disease without esophagitis; Z88.0 Allergy status to penicillin; Z79.899 Other long term (current) drug therapy
CPT/HCPCS: 36415; 76376; 80053; 82009; 82150; 83605; 83615; 83690; 84703; 85025; 85610-TC; 85730-TC; 86140; 99284

== ENCOUNTER 2022-10-10 05:49 | Emergency (ER) | payer MEDICAID ==
[~2022-10-10] VITALS: Ht 170.2 cm; Wt 72.6 kg
[~2022-10-10 05:49] MED LIST changes: +CEPH250C PO; +IBUP-1969 PO; +ONDA-8 TL
--- NOTE | 2022-10-10 06:00 | NUR ---
Triaged and placed patient to ER bed 8 for evaluation. Report given to Hira PRICE for continuity of care. Bed placed in lowest position with side rails up. Instructed to notify ED staff for any changes in condition or worsening of symptoms while waiting to be seen by a provider. Patient verbalized understanding.
[2022-10-10 06:01] VITALS: BP_SYST 135
[2022-10-10] MEDS ORDERED: NACL 0.9% 1,000 ML IV ONE (06:45)
[2022-10-10] MEDS ORDERED: MORPHINE 4 MG INJ. 4 MG/ML VIAL IVP ONE (06:45)
[2022-10-10] MEDS ORDERED: FAMOTIDINE PF 20 MG/2 ML VIAL IVP ONE (06:45)
[2022-10-10] MEDS ORDERED: ONDANSETRON HCL 4 MG/2 ML VIAL IVP ONE (06:45)
--- NOTE | 2022-10-10 06:48 | NUR ---
pt is here becuase she has 24 hours NV and diarrhea. She is also complaining about the pain in the abdoment 01/25. pt is alert and oriented x 4. pt room air and ambulatory
[2022-10-10 06:52] LABS: BASOPHILS % (AUTO) 0.5 % (0.0-2.0); EOSINOPHILS % (AUTO) 0.1 % (0.0-4.0); HEMATOCRIT 41.5 % (36-48); HEMOGLOBIN 14.5 g/dL (12.0-16.0); LYMPHOCYTES % (AUTO) 10.5 % (20.5-51.5); MEAN CORPUSCULAR HEMOGLOBIN 32 pg (27-31); MEAN CORPUSCULAR HGB CONC 35 % (32-36); MEAN CORPUSCULAR VOLUME 92 fL (79.0-98.0); MONOCYTES # (AUTO) 0.3 K/uL (0.0-1.0); MONOCYTES % (AUTO) 3.7 % (1.7-9.3); NEUTROPHILS # (AUTO) 7.9 K/uL (1.8-7.7); NEUTROPHILS % (AUTO) 85.2 % (40.0-70.0); PLATELET COUNT (AUTO) 315 K/uL (130-430); RED BLOOD CELL COUNT(AUTO) 4.51 MIL/uL (4.2-6.2); RED CELL DISTRIBUTION WIDTH 13.2 % (9.0-15.0); WHITE BLOOD COUNT (AUTO) 9.2 K/uL (4.8-10.8)
[2022-10-10 07:07] LABS: CALCIUM 9.1 mg/dL (8.4-11.0); CREATININE 0.75 mg/dL (0.55-1.30)
[2022-10-10 07:09] LABS: BILIRUBIN,URINE NEGATIVE (NEGATIVE); BLOOD, URINE 3+ (NEGATIVE); COLOR,URINE YELLOW (YELLOW); GLUCOSE,URINE NEGATIVE (NEGATIVE); KETONES,URINE NEGATIVE (NEGATIVE); LEUKOCYTE ESTERASE ,URINE NEGATIVE (NEGATIVE); NITRITE, URINE NEGATIVE (NEGATIVE); PH,URINE 5.5 (5.0-8.0); PROTEIN URINE NEGATIVE (NEGATIVE); UROBILINOGEN,URINE 0.2 (0.2-1.0)
[2022-10-10 07:13] LABS: ALBUMIN 4.1 g/dL (3.4-4.8); TOTAL BILIRUBIN 0.7 mg/dL (0.0-1.0)
[2022-10-10 07:36] LABS: CLARITY/URINE HAZY (CLEAR)
--- NOTE | 2022-10-10 07:42 | NUR ---
Pt resting without NV, pt complains of 4/10 pain gradient. Pt laying down in gurney with lights off. aaox3.
[2022-10-10 07:50] LABS: BACTERIA,URINE FEW /HPF (None Seen); MUCUS,URINE 1+ /LPF (None Seen); RBC,URINE 50-80 /HPF (0-3); WBC,URINE 0-3 /HPF (0-3)
[2022-10-10] MEDS ORDERED: CEPH-548 PO (07:57)
[2022-10-10] MEDS ORDERED: ONDA-8 TL (07:57)
--- NOTE | 2022-10-10 08:00 | NUR ---
ER at bedside examining patient.
--- NOTE | 2022-10-10 08:15 | NUR ---
Patient given written and verbal discharge instructions and verbalizes understanding. ER MD discussed with patient the results and treatment provided. Patient in stable condition. ID arm band removed. IV catheter removed intact and dressing applied, no active bleeding. Rx of cephalexin given. Patient educated on pain management and to follow up with PMD. Opportunity for questions provided and answered. Medication side effect fact sheet provided.
[2022-10-10 08:16] VITALS: BP_SYST 139
[2022-10-12] MEDS ORDERED: ONDA-8 TL (11:06)
[2022-10-12] MEDS ORDERED: DICY10CA13 PO (11:06)
== END 2022-10-10 08:15 | disposition home or self-care (01) ==
LOC: SED 05:49
DX: A08.4 Viral intestinal infection, unspecified (principal); N30.90 Cystitis, unspecified without hematuria; R11.10 Vomiting, unspecified; R19.7 Diarrhea, unspecified; R10.13 Epigastric pain; K21.9 Gastro-esophageal reflux disease without esophagitis; Z88.0 Allergy status to penicillin; Z79.899 Other long term (current) drug therapy
CPT/HCPCS: 99284; 96374; 96375; 96361; 80053; 81000; 83690; 85025; 36415; 81025; J3490; J2405; J2270; J7030

== ENCOUNTER 2022-11-01 13:48 | Emergency (ER) | payer MEDICAID ==
[~2022-11-01] VITALS: Ht 167.6 cm; Wt 77.1 kg
[~2022-11-01 13:48] MED LIST changes: +CEPH-548 PO; +DICY10CA13 PO
[2022-11-01 14:08] VITALS: BP_SYST 147
[2022-11-01] MEDS ORDERED: KETOROLAC TROMETHAMINE 30 MG VIAL IVP ONE (14:30)
[2022-11-01] MEDS ORDERED: NACL 0.9% 1,000 ML IV ONE (14:30)
[2022-11-01] MEDS ORDERED: ONDANSETRON HCL 4 MG/2 ML VIAL IVP ONE ×2 (14:30→16:45)
[2022-11-01 14:36] LABS: CLARITY/URINE SLIGHTLY HAZY (CLEAR); COLOR,URINE YELLOW (YELLOW)
[2022-11-01 14:37] LABS: BILIRUBIN,URINE NEGATIVE (NEGATIVE); BLOOD, URINE NEGATIVE (NEGATIVE); GLUCOSE,URINE NEGATIVE (NEGATIVE); KETONES,URINE NEGATIVE (NEGATIVE); LEUKOCYTE ESTERASE ,URINE NEGATIVE (NEGATIVE); NITRITE, URINE NEGATIVE (NEGATIVE); PROTEIN URINE TRACE (NEGATIVE); UROBILINOGEN,URINE 0.2 (0.2-1.0)
[2022-11-01 14:46] LABS: BACTERIA,URINE FEW /HPF (None Seen); RBC,URINE NONE SEEN /HPF (0-3); URINE AMORPHOUS URATE 2+ /HPF (None Seen); WBC,URINE 0-3 /HPF (0-3)
[2022-11-01 15:15] LABS: BASOPHILS % (AUTO) 0.5 % (0.0-2.0); EOSINOPHILS % (AUTO) 0.1 % (0.0-4.0); HEMATOCRIT 40.8 % (36-48); HEMOGLOBIN 14.3 g/dL (12.0-16.0); LYMPHOCYTES # (AUTO) 1.3 K/uL (1.0-5.5); LYMPHOCYTES % (AUTO) 14.3 % (20.5-51.5); MEAN CORPUSCULAR HEMOGLOBIN 32 pg (27-31); MEAN CORPUSCULAR HGB CONC 35 % (32-36); MEAN CORPUSCULAR VOLUME 92 fL (79.0-98.0); MONOCYTES # (AUTO) 0.4 K/uL (0.0-1.0); NEUTROPHILS # (AUTO) 7.2 K/uL (1.8-7.7); NEUTROPHILS % (AUTO) 80.1 % (40.0-70.0); PLATELET COUNT (AUTO) 356 K/uL (130-430); RED BLOOD CELL COUNT(AUTO) 4.42 MIL/uL (4.2-6.2); RED CELL DISTRIBUTION WIDTH 12.7 % (9.0-15.0); WHITE BLOOD COUNT (AUTO) 8.9 K/uL (4.8-10.8)
[2022-11-01 15:21] LABS: CALCIUM 9.3 mg/dL (8.4-11.0); CREATININE 0.75 mg/dL (0.55-1.30)
[2022-11-01 15:25] LABS: ALBUMIN 4.1 g/dL (3.4-4.8); TOTAL BILIRUBIN 0.8 mg/dL (0.0-1.0)
[2022-11-01] MEDS ORDERED: MORPHINE 4 MG INJ. 4 MG/ML VIAL IVP ONE (16:45)
[2022-11-01] MEDS ORDERED: ONDA-8 TL (17:05)
[2022-11-01] MEDS ORDERED: IBUP-1971 PO (17:05)
[2022-11-01 17:18] VITALS: BP_SYST 122
== END 2022-11-01 17:57 | disposition home or self-care (01) ==
LOC: SED 13:48
DX: N83.202 Unspecified ovarian cyst, left side (principal); R10.32 Left lower quadrant pain; K21.9 Gastro-esophageal reflux disease without esophagitis; Z88.0 Allergy status to penicillin; Z79.899 Other long term (current) drug therapy
CPT/HCPCS: 99285; 96374; 70450; 76856; 96375; 96361; 80053; 81000; 84703; 83690; 85025; 36415; 76376; 96376; 81025; J1885; J2405; J2270; J7030; 93005

== ENCOUNTER 2022-12-04 08:19 | Emergency (ER) | payer MEDICAID ==
[~2022-12-04] VITALS: Ht 170.2 cm; Wt 71.2 kg
[~2022-12-04 08:19] MED LIST changes: +IBUP-1971 PO
--- NOTE | 2022-12-04 08:30 | NUR ---
Patient to ER bed H1 to gown for evaluation. Side rails up.
--- NOTE | 2022-12-04 08:30 | NUR ---
ER at bedside examining patient.
--- NOTE | 2022-12-04 08:31 | NUR ---
PT BIB self. C/O flu like symptoms, pt states productive cough with mucus, pt states SOB with activity. Pt states onset of 3 days. Pt states pain upon inspiration. Pt afebrile. Pt denies N/V/D/. Pt speaking full complete sentences without complication. RR 16. Resp. even and unlabored. Pt AAOX4. Pt skin dry and intact. Pt in bed with side rails up.
[2022-12-04 08:33] VITALS: BP_SYST 125
[2022-12-04] MEDS ORDERED: MED4 PO (08:33)
--- NOTE | 2022-12-04 08:41 | NUR ---
Patient given written and verbal discharge instructions and verbalizes understanding. ER MD discussed with patient the results and treatment provided. Patient in stable condition. ID arm band removed. Rx of MEDROL given. Patient educated on pain management and to follow up with PMD. Opportunity for questions provided and answered. Medication side effect fact sheet provided.
[2022-12-04 08:42] VITALS: BP_SYST 125
== END 2022-12-04 08:41 | disposition home or self-care (01) ==
LOC: SED 08:19
DX: J06.9 Acute upper respiratory infection, unspecified (principal); R05.9 Cough, unspecified; R07.89 Other chest pain; K21.9 Gastro-esophageal reflux disease without esophagitis; Z88.0 Allergy status to penicillin; Z79.899 Other long term (current) drug therapy
CPT/HCPCS: 99283

== ENCOUNTER 2022-12-19 17:10 | Emergency (ER) | payer MEDICAID ==
[~2022-12-19] VITALS: Ht 162.6 cm; Wt 56.7 kg
[~2022-12-19 17:10] MED LIST changes: +MED4 PO
--- NOTE | 2022-12-19 17:21 | NUR ---
Placed in room 06 . Placed on monitor and storage bin tender, blood pressure machine and pulse oximeter. To gown for exam. Side rails up. Report given to Carloz PRICE .
[2022-12-19 17:22] VITALS: BP_SYST 144
--- NOTE | 2022-12-19 17:24 | NUR ---
Patient arrived to ED 8 for c/o syncope one hour ago. Patient denies tripping. She said she fell and hit the back of her head. Her son and family member helped pick her up. She has been to [facility] before for PMH cyst. Patient wears clonidine patch for htn. Patient is alert and oriented x4. Respiration even and unlabored. No shortness of breath. Her family at bedside. Dr. Lamas came to MSE patient. Will continue to monitor.
--- NOTE | 2022-12-19 17:28 | NUR ---
Patient has pmh of gout and gallbladder removal and bilateral knee surgeries.
[2022-12-19] MEDS ORDERED: KETOROLAC TROMETHAMINE 30 MG VIAL IVP ONE (17:45)
[2022-12-19] MEDS ORDERED: ONDANSETRON HCL 4 MG/2 ML VIAL IVP ONE (17:45)
[2022-12-19] MEDS ORDERED: NACL 0.9% 1,000 ML IV ONE (17:45)
[2022-12-19 18:33] LABS: BASOPHILS % (AUTO) 0.3 % (0.0-2.0); EOSINOPHILS % (AUTO) 0.3 % (0.0-4.0); HEMATOCRIT 40.9 % (36-48); LYMPHOCYTES # (AUTO) 1.9 K/uL (1.0-5.5); LYMPHOCYTES % (AUTO) 13.4 % (20.5-51.5); MEAN CORPUSCULAR HEMOGLOBIN 31 pg (27-31); MEAN CORPUSCULAR HGB CONC 34 % (32-36); MEAN CORPUSCULAR VOLUME 91 fL (79.0-98.0); MONOCYTES % (AUTO) 7.1 % (1.7-9.3); NEUTROPHILS # (AUTO) 11.4 K/uL (1.8-7.7); NEUTROPHILS % (AUTO) 78.9 % (40.0-70.0); PLATELET COUNT (AUTO) 387 K/uL (130-430); RED BLOOD CELL COUNT(AUTO) 4.48 MIL/uL (4.2-6.2); RED CELL DISTRIBUTION WIDTH 12.5 % (9.0-15.0); WHITE BLOOD COUNT (AUTO) 14.4 K/uL (4.8-10.8)
[2022-12-19 18:40] LABS: ANION GAP 7 (5-15); CALCIUM 7.8 mg/dL (8.4-11.0); CHLORIDE 103 mmol/L (98-107); CREATININE 0.77 mg/dL (0.55-1.30); GFR AFRICAN AMERICAN 106 mL/min (>90); GLUCOSE 107 mg/dL (70-99); UREA NITROGEN, BLOOD 9 mg/dL (8-21)
[2022-12-19 18:47] LABS: ALANINE AMINOTRANSFERASE 40 U/L (12-78); ALBUMIN 3.7 g/dL (3.4-4.8); ASPARTATE AMINOTRANSFERASE 24 U/L (10-37); TOTAL BILIRUBIN 0.7 mg/dL (0.0-1.0)
--- NOTE | 2022-12-19 18:58 | NUR ---
Patient said she was having panic attack and "scared." Dr. Lamas made aware. Monitor at the moment.
[2022-12-19 19:24] LABS: BILIRUBIN,URINE NEGATIVE (NEGATIVE); BLOOD, URINE NEGATIVE (NEGATIVE); CLARITY/URINE CLEAR (CLEAR); COLOR,URINE YELLOW (YELLOW); GLUCOSE,URINE NEGATIVE (NEGATIVE); KETONES,URINE NEGATIVE (NEGATIVE); LEUKOCYTE ESTERASE ,URINE NEGATIVE (NEGATIVE); NITRITE, URINE NEGATIVE (NEGATIVE); PH,URINE 8.5 (5.0-8.0); PROTEIN URINE 1+ (NEGATIVE); UROBILINOGEN,URINE 0.2 (0.2-1.0)
[2022-12-19 19:31] LABS: BACTERIA,URINE RARE /HPF (None Seen); RBC,URINE 0-3 /HPF (0-3); WBC,URINE 0-3 /HPF (0-3)
[2022-12-19 19:32] LABS: MUCUS,URINE None Seen /LPF (None Seen)
[2022-12-19 20:02] VITALS: BP_SYST 134
--- NOTE | 2022-12-19 20:05 | NUR ---
Patient given written and verbal discharge instructions and verbalizes understanding. ER MD discussed with patient the results and treatment provided. Patient in stable condition. ID arm band removed. IV catheter removed intact and dressing applied, no active bleeding. Patient educated on pain management and to follow up with PMD. Pain Scale . Opportunity for questions provided and answered. Medication side effect fact sheet provided.
== END 2022-12-19 20:02 | disposition home or self-care (01) ==
LOC: SED 17:10
DX: R55 Syncope and collapse (principal); R00.2 Palpitations; R42 Dizziness and giddiness; K21.9 Gastro-esophageal reflux disease without esophagitis; I10 Essential (primary) hypertension; F11.20 Opioid dependence, uncomplicated; Z88.0 Allergy status to penicillin; Z79.899 Other long term (current) drug therapy
CPT/HCPCS: 99285; 70450; 96374; 96361; 96375; 80053; 81000; 83880; 85025; 85379; 84484; 36415; 70486; 72125; 76376; J1885; J2405; J7030

== ENCOUNTER 2023-03-17 16:30 | Emergency (ER) | payer MEDICAID ==
[~2023-03-17] VITALS: Ht 170.2 cm; Wt 72.6 kg
[2023-03-17 16:50] VITALS: BP_SYST 124; PULSE 110; RESP 18; TEMP 98.3; O2SAT 97
[2023-03-17] MEDS ORDERED: KETOROLAC TROMETHAMINE 60 MG/2 ML VIAL IM ONE (18:00)
[2023-03-17] MEDS ORDERED: cefTRIAXone 1 GM in LIDOCAINE 1%, 20 ML MDV 2.1 ML IM ONE (18:00)
[2023-03-17] MEDS ORDERED: COLCHICINE 0.6 MG TABLET PO ONE (18:00)
[2023-03-17] MEDS ORDERED: NAPR-690 PO (18:04)
[2023-03-17] MEDS ORDERED: COLC0.6T67 PO (18:04)
[2023-03-17] MEDS ORDERED: ALLO100T91 PO (18:04)
[2023-03-17] MEDS ORDERED: CEPH-548 PO (18:07)
[2023-03-17 18:37] VITALS: BP_SYST 124; PULSE 95; RESP 18; O2SAT 98
== END 2023-03-17 18:37 | disposition home or self-care (01) ==
LOC: SED 16:30
DX: M10.9 Gout, unspecified (principal); I10 Essential (primary) hypertension; K21.9 Gastro-esophageal reflux disease without esophagitis; Z88.0 Allergy status to penicillin; Z79.899 Other long term (current) drug therapy
CPT/HCPCS: 99284; 81025; 96372; J0696; J1885; J2001

== ENCOUNTER 2023-04-02 09:27 | Emergency (ER) | payer MEDICAID ==
[~2023-04-02] VITALS: Ht 170.2 cm; Wt 72.6 kg
[~2023-04-02 09:27] MED LIST changes: +ALLO100T91 PO; +COLC0.6T67 PO; +DICY-14 PO; -DICY10CA13 PO; +NAPR-690 PO
[2023-04-02 09:48] VITALS: BP_SYST 137; PULSE 90; RESP 24; TEMP 98; O2SAT 97
[2023-04-02 10:05] LABS: BASOPHILS % (AUTO) 0.7 % (0.0-2.0); EOSINOPHILS % (AUTO) 0.1 % (0.0-4.0); HEMATOCRIT 40.1 % (36-48); HEMOGLOBIN 13.4 g/dL (12.0-16.0); LYMPHOCYTES % (AUTO) 16.5 % (20.5-51.5); MEAN CORPUSCULAR HEMOGLOBIN 31 pg (27-31); MEAN CORPUSCULAR HGB CONC 34 % (32-36); MEAN CORPUSCULAR VOLUME 92 fL (79.0-98.0); MONOCYTES # (AUTO) 0.2 K/uL (0.0-1.0); NEUTROPHILS # (AUTO) 4.7 K/uL (1.8-7.7); NEUTROPHILS % (AUTO) 79.7 % (40.0-70.0); PLATELET COUNT (AUTO) 336 K/uL (130-430); RED BLOOD CELL COUNT(AUTO) 4.34 MIL/uL (4.2-6.2); RED CELL DISTRIBUTION WIDTH 13.3 % (9.0-15.0); WHITE BLOOD COUNT (AUTO) 5.9 K/uL (4.8-10.8)
[2023-04-02] MEDS ORDERED: ONDANSETRON HCL 4 MG/2 ML VIAL IVP ONE (10:15)
[2023-04-02] MEDS ORDERED: buPROPion HCL 75 MG TABLET PO ONE (10:15)
[2023-04-02] MEDS ORDERED: busPIRone HCL 5 MG TABLET PO ONE (10:15)
[2023-04-02] MEDS ORDERED: MORPHINE 4 MG INJ. 4 MG/ML VIAL IVP ONE (10:15)
[2023-04-02] MEDS ORDERED: QUEtiapine FUMARATE 25 MG TABLET PO ONE (10:15)
[2023-04-02 10:21] LABS: CALCIUM 8.6 mg/dL (8.4-11.0); CREATININE 0.89 mg/dL (0.55-1.30); POTASSIUM 3.6 mmol/L (3.5-5.1)
[2023-04-02 10:22] LABS: PROTHROMBIN TIME 10.4 SECS (9.5-12.5)
[2023-04-02 10:26] LABS: ALBUMIN 3.8 g/dL (3.4-4.8); TOTAL BILIRUBIN 0.5 mg/dL (0.0-1.0); TOTAL PROTEIN, SERUM 6.9 g/dL (6.4-8.3)
[2023-04-02 11:11] LABS: BARBITURATE, URINE NEGATIVE (NEG <=200); BENZODIAZEPINE, URINE NEGATIVE (NEG <=150); CANNABINOID, URINE NEGATIVE (NEG <=50); COCAINE, URINE POSITIVE (NEG <=150); METHAMPHETAMINES SCREEN,URINE NEGATIVE (NEG <=500); URINE AMPHETAMINE NEGATIVE (NEG <=500); URINE METHADONE NEGATIVE (NEG <=200)
[2023-04-02 11:12] LABS: OPIATE, URINE POSITIVE (NEG <=100); PHENCYCLIDINE SCREEN,URINE NEGATIVE (NEG <=25); URINE OXYCODONE SCREEN NEGATIVE (NEG <=100); URINE PROPOXYPHENE SCREEN NEGATIVE (NEG <=300)
[2023-04-02 11:14] LABS: UR TRICYCLIC ANTIDEPRESSANTS NEGATIVE (NEG <=300)
[2023-04-02] MEDS ORDERED: NAPR-1172 PO (13:22)
[2023-04-02] MEDS ORDERED: LIDO1ADH22 TP (13:22)
[2023-04-02] MEDS ORDERED: CYCL10TA24 PO (13:22)
[2023-04-02] MEDS ORDERED: MORPHINE 2 MG/ML INJ. SYRINGE IVP ONE (13:30)
[2023-04-02 14:52] VITALS: BP_SYST 127; PULSE 90; RESP 21; TEMP 97.8; O2SAT 97
== END 2023-04-02 14:01 | disposition home or self-care (01) ==
LOC: SED 09:27
DX: S39.012A Strain of muscle, fascia and tendon of lower back, initial encounter (principal); F32.A Depression, unspecified; F14.90 Cocaine use, unspecified, uncomplicated; I10 Essential (primary) hypertension; K21.9 Gastro-esophageal reflux disease without esophagitis; Z88.0 Allergy status to penicillin; Z79.899 Other long term (current) drug therapy; W10.9XXA Fall (on) (from) unspecified stairs and steps, initial encounter; Y93.89 Activity, other specified; Y92.89 Other specified places as the place of occurrence of the external cause; Y99.8 Other external cause status
CPT/HCPCS: 99285; 96374; 72131; 96375; 80307; 80053; 85025; 85610; 85730; 36415; 93005; 76376; 96376; 81025; J2405; J2270 ×2